=== PATIENT | female | born 1945 | race Caucasian/White ===

== ENCOUNTER → 2024-06-13 | Outpatient (CLI) | payer MEDICARE, BC, SELFPAY ==
--- NOTE | 2024-06-13 | XR_ITS ---
Examination: CT soft tissue neck, with intravenous contrast. 2-D coronal reconstructions. 2-D sagittal reconstructions. Date and time of exam :June 13, 2024 1350 hours INDICATIONS: Palpable lump in the left side of the neck noticed today. CTDI: vol (mGy):8.03 DLP: (mGycm):237 Technique: 1.25 mm axial sections of the neck of the obtained. Coronal and sagittal reconstructions have been obtained. Intravenous contrast administered 50 cc Isovue-370 Low dose protocols were performed. One or more of the following dose reduction techniques were used; automated exposure control, adjustment of the mA and/or KV according to patient size, use of iterative reconstruction technique. Findings: Mild maxillary sinus disease Symmetrical nasopharynx oropharynx Bilateral soft tissue tonsillar prominence Bilateral carotid triangle lymph nodes, the largest 10 mm on the left side Symmetrical submandibular glands The larynx appears normal Symmetrical thyroid lobes IMPRESSION: Bilateral soft tissue tonsillar prominence, recommend MRI soft tissue neck follow-up pre and postcontrast Also recommend ultrasound soft tissue of any palpable neck abnormality
== END | disposition home or self-care (01) ==
LOC: CDIM 13:19
PROVIDERS: PCP Specialist; Referring Provider Specialist; Visit Provider Specialist
DX: R22.1 Localized swelling, mass and lump, neck (principal)
CPT/HCPCS: 70491; A4649; Q9967

== ENCOUNTER 2024-07-31 11:26 | Inpatient (IN) | payer MEDICARE, BC, SELFPAY ==
[2024-07-31] VITALS (7 sets, daily range): BP systolic 130–138; BP diastolic 70–77; PULSE 80–98; RESP 15–97; TEMP 36.5–37.6; O2SAT 96–99; BMI 16.7; BMI 16.9
--- NOTE | 2024-07-31 11:39 | XR_ITS ---
Examination: CT brain head without contrast. 2-D sagittal coronal reconstructions Date and time of exam:July 31, 2024 1150 hours INDICATIONS: Patient fell today with injury to the back of the head, head pain CTDI: vol (mGy):45.5 DLP: (mGycm):904 Technique: Multiple CT axial sections of the brain have been obtained, 5 mm slice thickness. Contrast has not been administered. 2-D sagittal, coronal reconstructions have been obtained Low dose protocols were performed. One or more of the following dose reduction techniques were used; automated exposure control, adjustment of the mA and/or KV according to patient size, use of iterative reconstruction technique. Findings: No significant ventricular enlargement. Intra-axial or extra-axial hemorrhage density is not seen. No mass effect or midline shift Basal cisterns are not remarkable. Fourth ventricle is midline. Cranial vault intact. Impression: Negative for acute hemorrhage, mass effect or midline shift
--- NOTE | 2024-07-31 11:39 | XR_ITS ---
Examination: AP chest single view Technique one AP portable semiupright chest single view Date and time: July 31, 2024 12:22 PM comparison March 31, 2021 Indications: Patient fell 2 days ago with injury of the chest, chest pain FINDINGS: Normal heart size No pneumothorax No pneumonia or pulmonary contusion Prominent osteopenia, no acute clavicle or rib fractures IMPRESSION: No pneumothorax pulmonary contusion or hemothorax
--- NOTE | 2024-07-31 11:39 | XR_ITS ---
Examination: CT cervical spine without contrast 2-D sagittal reconstructions 2-D coronal reconstructions 3-D reconstructions. Exam date and time:July 31, 2024 1150 hours Patient fell today with into the neck, neck pain CTDI:vol (mGy) 6.90 DLP: (mGycm) 149 Technique: Multiple 2 mm axial sections of the cervical spine have been obtained. The coronal and sagittal reconstructions have been obtained. 3-D reconstructions have been obtained. Low dose protocols were performed. One or more of the following dose reduction techniques were used; automated exposure control, adjustment of the mA and/or KV according to patient size, use of iterative reconstruction technique. Findings: Axial sections demonstrate intact base of the skull. Grade 1 anterolisthesis C3 on C4 Significant disc narrowing C3-C4, C4-C5, C5-C6, C6-C7 C1 exhibit satisfactory relationship to the odontoid. No acute cervical vertebral body fracture seen. Alignment posterior spinous processes satisfactory. Impression: No acute cervical fracture.
--- NOTE | 2024-07-31 11:39 | XR_ITS ---
Examination:Right hip AP, lateral, AP pelvis 3 views Technique: Hip AP lateral, AP pelvis, 3 views Exam date and time:July 31, 2024 1220 hours INDICATIONS: Patient fell 2 days ago with injury to the right hip, right hip pain FINDINGS: Acute intertrochanteric fracture right hip 10 mm separation at the main fracture site Left hip bones of the pelvis intact Severe osteopenia IMPRESSION: Acute intertrochanteric fracture right hip.
--- NOTE | 2024-07-31 11:39 | XR_ITS ---
Examination: Right femur 2 views TECHNIQUE: AP lateral right femur 2 views Date and time: July 31, 2024 1209 hours INDICATIONS: Patient fell 2 days ago with injury to the femur, femur pain. FINDINGS: Acute intertrochanteric fracture right hip 10 mm separation at the main fracture site Shaft of the femur intact IMPRESSION: Acute intertrochanteric fracture right hip
--- NOTE | 2024-07-31 11:40 | EKG_ITS ---
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
--- NOTE | 2024-07-31 11:41 | PD.EDFALL ---
ED Fall Injury RME/HPI General Chief Complaint: Fall Stated Complaint: FALL Time Seen by Provider: 07/31/24 11:32 Arrival date/time: 07/31/24 11:26 RME / HPI RME / HPI Narrative: 79-year-old female patient with significant history of diabetes mellitus, came in for evaluation regarding ground-level fall patient sustained a ground-level fall last Monday night, and since then she is unable to ambulate that is why she decided to call EMS today. Patient also complained of right temporal contusion, neck pain, severity mild. Denies any LOC denies any nausea or vomiting denies any other injury. Patient is not taking any blood thinner. Related Data Home Medications ?Medication ?Instructions ?Recorded ?Confirmed blood-glucose sensor (Dexcom G6 11/14/23 11/14/23 Sensor device) blood-glucose transmitter (Dexcom 11/14/23 11/14/23 G6 Transmitter device) insulin glargine 100 unit/mL (3 4 unit subcut ACHS 11/14/23 11/14/23 mL) subcutaneous pen (Lantus Solostar U-100 Insulin) Allergies Allergy/AdvReac Type Severity Reaction Status Date / Time fentanyl Allergy Severe Weakness Verified 07/31/24 11:34 codeine Allergy Intermediate NAUSEA, Verified 07/31/24 11:34 VOMITING Sulfa (Sulfonamide Allergy Intermediate Rash Verified 07/31/24 11:34 Antibiotics) Review of Systems Review of Systems Narrative Review of Systems: Review of system reviewed and within normal limits except mentioned in HPI ED Exam Narrative Physical exam: VITAL SIGNS: Reviewed. GENERAL APPEARANCE: Alert and interactive, follows commands, no acute distress, HEAD AND FACE: Non-traumatic. ENT: PERRL, pink conjunctivitis, eyelid no trauma, Mucous membrane moist. NECK: Supple, nontender, no nuchal rigidity. CHEST: No tenderness, no crepitus, no paradoxical movement, no retractions. LUNGS: Clear, well ventilated, symmetric, no rales, no wheezing, no ronchi, no stridor, good breath sounds bilaterally. HEART: Regular rate, regular rhythm, no murmur, no gallops. ABDOMEN: Soft, positive bowel sounds, nondistended, no guarding, nontender, no rebound, no masses, RECTAL: Deferred. GENITAL: Deferred. NEUROLOGICAL: Gross motor function intact sensory function intact, Appropriate for age. MUSCULOSKELETAL: Right hip tenderness, externally rotated, slightly shortened, with limitation range of motion. Distal neurovascular status intact EXTREMITIES: Nontender, full range of motion. SKIN: Color pink, dry, no rash, no lacerations, no abrasions, no contusions. LYMPHATICS: Deferred. Course Quality Measures none Orders Category Date Time Status COVID-19 Screening Questionnaire NOW Care 07/31/24 14:21 Active Decision to Admit X1 Care 07/31/24 14:21 Active EKG (ED ONLY) *Do not use* NOW Care 07/31/24 11:40 Completed King [Urinary Catheter] QS Care 07/31/24 13:18 Active Consult to Orthopedic Stat Cons 07/31/24 13:[address] cervical spine wo con Stat Exams 07/31/24 11:[address] head/brain wo con Stat Exams 07/31/24 11:39 Completed EKG (ED Only) Stat Exams 07/31/24 11:40 Draft XR chest 1V Stat Exams 07/31/24 11:39 Completed XR femur RT 2V Stat Exams 07/31/24 11:39 Completed XR hip RT w pelvis 2-3V Stat Exams 07/31/24 11:39 Completed B-Type Natriuretic Peptide Stat Lab 07/31/24 12:46 Completed CBC Stat Lab 07/31/24 12:46 Completed Comprehensive Metabolic Panel Stat Lab 07/31/24 12:46 Completed Partial Thromboplastin Time Stat Lab 07/31/24 12:46 Completed Prothrombin Time with INR Stat Lab 07/31/24 12:46 Completed Troponin I Stat Lab 07/31/24 12:46 Completed Urinalysis, C/S if Indicated Stat Lab 07/31/24 13:48 Completed HYDROmorphone INJ [Dilaudid Inj] Med 07/31/24 13:18 Discontinued 1 mg IVP X1 ONE Vital Signs Vital signs: Vital Signs Temperature 99.7 F 07/31/24 11:50 Pulse Rate 98 07/31/24 11:50 Respiratory Rate 16 07/31/24 11:50 Blood Pressure 131/75 H 07/31/24 11:50 Pulse Oximetry (%) 99 07/31/24 11:50 Oxygen Delivery Method Room Air 07/31/24 11:50 Fall MDM Narrative MDM Narrative:: 79-year-old female patient with significant history of diabetes mellitus, came in for evaluation regarding ground-level fall patient sustained a ground-level fall last Monday night, and since then she is unable to ambulate that is why she decided to call EMS today. Patient also complained of right temporal contusion, neck pain, severity mild. Denies any LOC denies any nausea or vomiting denies any other injury. Patient is not taking any blood thinner. X-ray of the hip showed intertrochanteric fracture of the right femur. CT scan right hip unremarkable CT scan of the neck came back unremarkable. The rest of the labs came back normal impression except for hemoglobin of 9.9. EKG showed A-fib ventricular rate of 89 bpm, no ST segment elevation depression noted. I spoke with Dr. Tjeada orthopedic surgeon on-call who asked me to ask The hospitalist to admit the patient. I sent messages to Dr Piña for cardiac clearance. Case discussed with hospitalist who admitted the patient. Patient data External records reviewed:: None Clinical information provided by:: patient and family Social determinants that could affect healthcare access:: none Patient has the following chronic illnesses:: Diabetes mellitus How is presenting disease/condition affected by chronic disease/condition?: uneffected by Evaluation data The following diagnostics were reviewed and interpreted by me:: lab results, radiology exam(s) and EKG tracing(s) Lab and/or radiology exams considered but not ordered:: None Interpretation Summary: See response MDM Medications / Prescriptions Medications or Prescriptions considered but not ordered:: None Medication administrations:: Medication Administration History Acetaminophen (Acetaminophen 325 Mg Tablet) 650 mg PO Q6H PRN PRN Reason: Fever >100.3 or pain 1-3 Stop: 08/30/24 15:14 Dextrose (Dextrose 50%-Water Inj 50 Ml Syringe) 25 ml IV Q15MIN PRN PRN Reason: BG 50-70 responsive npo pt Stop: 08/30/24 16:01 Dextrose (Dextrose 50%-Water Inj 50 Ml Syringe) 50 ml IV Q15MIN PRN PRN Reason: BG <50 OR BG <70 & pt unresponsive Stop: 08/30/24 16:01 Glucagon (Glucagon Inj 1 Mg Vial) 1 mg IM Q15MIN PRN PRN Reason: BG <70, and no IV access Insulin Human Lispro (Insulin Lispro (Admelog) 1 Unit/0.01 Ml Unit) 0 unit SC AC [facility], [facility]; Protocol Stop: 08/30/24 16:59 Ketorolac Tromethamine (Ketorolac Inj 30 Mg/Ml Vial) 15 mg IVP Q6HR PRN PRN Reason: Pain 4-6 Stop: 08/05/24 15:30 Meperidine HCl (Meperidine Inj 50 Mg/Ml Vial) 25 mg IVP Q4HR PRN PRN Reason: pain 7-10 Stop: 08/05/24 16:48 Ondansetron HCl (Ondansetron Inj 2 Mg/Ml Inj 2 Ml) 4 mg IVP Q6H PRN; Protocol PRN Reason: NAUSEA OR VOMITING Stop: 08/30/24 15:14 Pancreatin (Amylase/Lipase/Protease Capsule (Pancreaze)) 1 cap PO TIDWM MACHO Stop: 08/30/24 17:29 Sennosides (Senna Tablet) 1 tab PO QDAY PRN; Protocol PRN Reason: constipation Stop: 08/30/24 15:14 Discontinued Medications Acetaminophen (Acetaminophen 325 Mg Tablet) 650 mg PO Q6H PRN PRN Reason: Fever >100.3 or pain Stop: 08/30/24 15:14 Hydromorphone HCl (Hydromorphone Inj 2 Mg/Ml Vial) 1 mg IVP X1 ONE Stop: 07/31/24 13:19 Last Admin: 07/31/24 17:12 Dose: Not Given Documented By: RAAFEL Non-Admin Reason: Patient Refused Hydromorphone HCl (Hydromorphone Inj 2 Mg/Ml Vial) 1 mg IVP Q4HR PRN PRN Reason: Pain 7-10 Stop: 08/05/24 15:30 Meperidine HCl (Meperidine Inj 25 Mg/Ml Vial) 25 mg IVP Q6HR PRN PRN Reason: pain 7-10 Stop: 08/05/24 16:48 Potassium Chloride (Potassium Chloride 20 Meq Tabcr) 40 meq PO X1 ONE Stop: 07/31/24 15:52 Last Admin: 07/31/24 16:55 Dose: 40 meq Documented By: RAFAEL Potassium Chloride (Potassium Chloride 10% 20 Meq/15 Ml Udc) 20 meq PO X1 ONE Stop: 07/31/24 17:06 Last Admin: 07/31/24 17:25 Dose: 20 meq Documented By: RAFAEL Comments: Scanner not working Tylenol, hydrocodone, potassium Consultations Consultation(s) initiated? (list below): Yes Consultation #1 (Physician, Specialty, Details): Dr. Tejada Diagnosis Fall Differential Diagnosis: concussion with loss of consciousness (Hip fracture, status post fall, intertrochanteric fracture of the hip) Most likely diagnosis given after review of the tests above:: Intertrochanteric fracture of the hip Admission Indicated Admission indicated?: not indicated Admission Request Was there a request for admission?: Yes Admission Attestation Admission request attestation: Discussed case with [Dr. Stover] from Hospitalist service regarding admission. Discussed patients ED course, exam findings, labs, and radiology results. The Hospitalist [agrees to accept the patient for admission. Disposition Plan Disposition Plan: Admit Discharge Plan Plan Patient Disposition: Admit Acute Care w/in Hospital Discharge Disposition comment: Stable Problem List Clinical Impression: Closed intertrochanteric fracture of right femur, Diabetes mellitus
[2024-07-31 13:02] LABS: Basophils % (Auto) 0 % (0-2.5); Eosinophils % (Auto) 0 % (0-10); Hematocrit 29.6 % (36.0-46.0); Hemoglobin 9.9 g/dL (12.0-16.0); Immature Granulocytes % (Auto) 0 % (0-0); Immature Granulocytes Auto 0.01 Thou/mm3 (0.00-0.00); Lymphocytes # (Auto) 2.2 Thou/mm3 (1.0-4.8); Lymphocytes % (Auto) 28 % (10-50); Mean Corpuscular HGB Conc 33.4 g/dl (31.0-37.0); Mean Corpuscular Hemoglobin 33.6 pg (25.0-35.0); Mean Corpuscular Volume 100 fL (80-100); Monocytes # (Auto) 1.4 Thou/mm3 (0.0-0.8); Monocytes % (Auto) 18 % (0-12); Neutrophils # (Auto) 4.3 Thou/mm3 (1.8-7.7); Neutrophils % (Auto) 54 % (37-80); Nucleated Red Blood Cell % 0 /100 WBC (0); Platelet Count 167 Thou/mm3 (140-440); RDW Standard Deviation 49.6 fL (36.4-46.3); Red Blood Count 2.95 Miln/mm3 (4.00-5.20)
[2024-07-31 13:19] LABS: B-Type Natriuretic Peptide 123 pg/mL (0-100)
[2024-07-31 13:21] LABS: INR 1.1 (0.9-1.3); Partial Thromboplastin Time 29.9 Seconds (22.0-36.0)
[2024-07-31 13:23] LABS: Alanine Aminotransferase 23 U/L (10-49); Albumin, Serum 2.8 gm/dL (3.4-4.8); Albumin/Globulin Ratio 1.3 (1.2-2.2); Alkaline Phosphatase 90 U/L (46-116); Anion Gap 8 (7-16); BUN/Creatinine Ratio 16 Ratio (12-20); Bilirubin,Total 0.9 mg/dL (0.3-1.2); Blood Urea Nitrogen 8 mg/dL (9-23); Carbon Dioxide 29.3 mMol/L (20.0-31.0); Chloride 108 mMol/L (98-107); Creatinine (Component) 0.5 mg/dL (0.6-1.3); Estimated Creatinine Clearance 70.2 mL/min (>60); Globulin 2.2 gm/dL (2.3-3.5); Glucose 107 mg/dL (74-106); Osmolality,Calculated 287 (275-295); Potassium 3.5 mMol/L (3.4-5.1); Sodium 145 mMol/L (136-145); Troponin I < 0.020 ng/mL (0.0-0.045); eGFR > 60 See Note
[2024-07-31 13:55] LABS: Collection Type, Urine Clean Catch
[2024-07-31 13:58] LABS: Bilirubin,Urine Negative (Negative); Blood,Urine Negative (Negative); Clarity,Urine Clear (Clear/Hazy); Color,Urine Colorless (Lt Yel-Yel); Culture Indicated,Urine Not Indicated; Glucose, Urine Negative (Negative); Ketones,Urine Negative (Negative); Leukocyte Esterase,Urine Negative (Negative); Nitrite,Urine Negative (Negative); PH,Urine 6.5 (5.0-7.0); Protein,Urine Negative (Neg - Trace); RBC,Urine < 1 /hpf (0-3); Specific Gravity,Urine 1.007 (1.001-1.035); Squamous Epithelial Cell,Urine < 1 /hpf (0-5); Urobilinogen,Urine Negative mg/dL (0.0-1.0); WBC,Urine < 1 /hpf (0-5)
--- NOTE | 2024-07-31 15:55 | ESHP_ITS ---
<Statement entered by Cameron Valadez MD - 07/31/24 22:20> Patient 79-year-old female with significant medical history for chronic pancreatitis, DM2 and skin cancer (undergoing radiation treatment) Biba from home after ground-level fall. Head CT was negative, right hip and femur x-ray indicated right intertrochanteric fracture of the hip. Orthopedic surgeon Dr. Mccann consulted, cardiology and echocardiogram ordered for clearance, plan is to have surgery on 08/02/2024. I discussed with and supervised the buyer internship physician involved in the care of this patient. Patient assessment and plan was discussed with entire medicine team, including my attending. I agree with the assessment and plan as documented by buyer internship doctor. Patient care was discussed with my attending physician Dr. Mckayla Valadez, PGY-2 Documentation for date of: 07/31/24 HPI History of Present Illness Chief complaint: right hip pain History of present illness: The patient is a 79-year-old female with a previous medical history of chronic pancreatitis, status post pancreatic surgery, insulin-dependent diabetes, skin cancer undergoing treatment who was brought to the ED by ambulance on 07/31/2024 after ground-level fall. Patient reports that she went to use the restroom, was moving to sit down on the toilet and, lost her balance and landed on the right side of the body and hit her head. She is not sure if she lost consciousness. Before coming to the hospital she received ketamine and Tylenol. In the ED she was hemodynamically stable, saturating well on room air. Labs showed WBC count of 8.0, hemoglobin 9.9, platelet count 167, potassium 3.5, creatinine 0.5, EGFR more than 60, glucose 107, corrected calcium 9.0, BNP 123. Head CT was negative for acute intracranial pathology. Imaging showed acute right intertrochanteric fracture of the hip. EKG showed sinus arrhythmia. Orthopedic surgeon Dr. Mccann was consulted for surgical management. Patient reports she feels nauseos from opid medication and reports that she tolerates well only Demerol. She was suggested other alternatives for pain control, but she requested Demerol. Patient also reported that she underwent multiple pancreatic surgeries and has a history of chronic pancreatitis. She used to take Creaon, but is unable to afford the copay. She is also using Glargine and insulin aspart for blood sugar control. She denies being diagnosed with Afib, reports that she was following up with general doc Dr. Helm and that she is not on blood thinners. Patient is going to be admitted for acute right hip fracture treatment and management. Social history: Denies drinking alcohol, smoking cigarettes. Independent in everyday activities, lives with her . Family history: Recurrent pancreatitis in her father Surgical history: Whipple surgery, splenectomy, cholecystectomy. Review of Systems Review of Systems Systems Reviewed: All systems reviewed, normal except as documented Exam Vital Signs Temp Pulse Resp BP Pulse Ox O2 Del Method 98.0 F 80 15 138/70 H 98 Room Air 07/31/24 14:27 07/31/24 14:27 07/31/24 14:27 07/31/24 14:27 07/31/24 14:07/31/24 14:27 Narrative Exam Gen: Thin elderly female. HEENT: NCAT, PERRLA, EOMI, MMM, anicteric conjunctivae. CVS: normal S1 and S2. RRR. No M/R/G. Resp: CTA B/L. No rhonchi, rales, crackles or wheezing. Abd: soft, non-tender, non-distended. BS+ in all 4 quadrants. MSK: Right lower extremity ROM restricted, extremity is externally rotated. 1+ tibial edema. Neuro: CN II-XII grossly intact. Able to move all extremities except right lower extremity due to pain. Alert and oriented x3. Psych: appropriate mood and affect. Results: Labs 08/01/24 05:23 08/01/24 05:23 Labs: Short CBC 07/31/24 Range/Units 12:46 WBC 8.0 (3.6-11.0) Thou/mm3 Hgb 9.9 L (12.0-16.0) g/dL Hct 29.6 L (36.0-46.0) % Plt Count 167 (140-440) Thou/mm3 BMP 07/31/24 12:46 Sodium 145 Potassium 3.5 Chloride 108 H Carbon Dioxide 29.3 BUN 8 L Creatinine 0.5 L Glucose 107 H Calcium 8.0 L Cardiac Enzymes 07/31/24 Range/Units 12:46 Troponin I < 0.020 (0.0-0.045) ng/mL Liver Function 06/11/25 Range/Units 12:46 Total Bilirubin 0.9 (0.3-1.2) mg/dL ALT 23 (10-49) U/L Alkaline Phosphatase 90 (46-116) U/L Albumin 2.8 L (3.4-4.8) gm/dL Urine 07/31/24 Range/Units 13:48 Urine Color Colorless A (Lt Yel-Yel) Urine Clarity Clear (Clear/Hazy) Urine pH 6.5 (5.0-7.0) Ur Specific [place] 1.007 (1.001-1.035) Urine Protein Negative (Neg - Trace) Urine Glucose (UA) Negative (Negative) Quality Measures Quality Measures VTE prophylaxis Advance care planning discussed with:: patient Medications Home Medications and Allergies Home Medications ?Medication ?Instructions ?Recorded ?Confirmed ?Type blood-glucose sensor (Dexcom G6 11/14/23 07/31/24 His tory Sensor device) blood-glucose transmitter (Dexcom 11/14/23 07/31/24 H istory G6 Transmitter device) insulin glargine 100 unit/mL (3 5 unit subcut BIDAC 07/31/24 History mL) subcutaneous pen (Lantus Solostar U-100 Insulin) cholecalciferol (vitamin D3) 1 tab PO QDAY 07/31/24 History docusate sodium 1 cap PO QDAY 07/31/2407/31 History fiber 1 dose PO QDAY 07/31/2407/21 History insulin aspart U-100 100 unit/mL 1 sliding scale dose subcut TIDWM 07/31/24 07/31/24 History (3 mL) subcutaneous pen (Novolog PRN hyperglycemia FlexPen U-100 Insulin aspart) [id number] 1 cap PO TIDWMEAL 07/31/24 0 07/31/24 History Allergies Allergy/AdvReac Type Severity Reaction Status Date / Time fentanyl Allergy Severe Weakness Verified 07/31/24 11:34 codeine Allergy Intermediate NAUSEA, Verified 07/31/24 11:34 VOMITING Sulfa (Sulfonamide Allergy Intermediate Rash Verified 07/31/24 11:34 Antibiotics) Visit Medications Acetaminophen (Acetaminophen 325 Mg Tablet) 650 mg PO Q6H PRN PRN Reason: Fever >100.3 or pain 1-3 Stop: 08/30/24 15:14 Hydromorphone HCl (Hydromorphone Inj 2 Mg/Ml Vial) 1 mg IVP Q4HR PRN PRN Reason: Pain 7-10 Stop: 08/05/24 15:30 Ketorolac Tromethamine (Ketorolac Inj 30 Mg/Ml Vial) 15 mg IVP Q6HR PRN PRN Reason: Pain 4-6 Stop: 08/05/24 15:30 Ondansetron HCl (Ondansetron Inj 2 Mg/Ml Inj 2 Ml) 4 mg IVP Q6H PRN; Protocol PRN Reason: NAUSEA OR VOMITING Stop: 08/30/24 15:14 Sennosides (Senna Tablet) 1 tab PO QDAY PRN; Protocol PRN Reason: constipation Stop: 08/30/24 15:14 Discontinued Medications Acetaminophen (Acetaminophen 325 Mg Tablet) 650 mg PO Q6H PRN PRN Reason: Fever >100.3 or pain Stop: 08/30/24 15:14 Hydromorphone HCl (Hydromorphone Inj 2 Mg/Ml Vial) 1 mg IVP X1 ONE Stop: 07/31/24 13:19 Potassium Chloride (Potassium Chloride 20 Meq Tabcr) 40 meq PO X1 ONE Stop: 07/31/24 15:52 Assessment & Plan Plan The patient is a 79-year-old female with a previous medical history of chronic pancreatitis, status post pancreatic surgery, insulin-dependent diabetes, skin cancer undergoing treatment who was brought to the ED by ambulance on 07/31/2024 after ground-level fall. #Acute right hip intertrochanteric fracture #Ground level fall Patient had a fall when she went to the restroom at night. Imaging showed right sided intertrochanteric fracture. Plan: - orthopedic surgeon Dr. Mccann consulted - pain control as needed - physical therapy after surgery #Anemia Patient had EGD and colonoscopy in 2023 that showed internal hemorrhoids and non-bleeding angiodysplasias. Plan: - monitor CBC - iron panel - transfuse if Hgb <7 #Chronic pancreatitis #S/p pancreatotomy #Insulin dependent diabetes mellitus #Body mass deficit Plan: - pancreaze TID with meals - diatitian consult - insulin sliding scale - hypoglycemia protocol Health maintenance: FEN: carbohydrate consistent DVT prophylaxis: SCDs GI prophylaxis: none Dispo: med surg CODE STATUS: Full code Plan of care discussed with attending Dr. Block. Gabi Reddy MD, PGY 1. Attending Provider Attestation/Addendum I, Bailey Block DO, attest that I was physically present for the cheng portions of the service and evaluated the patient with the resident and I reviewed and discussed the case with the resident and agree with the resident's findings and plans of care as documented above Patient is a 79-year-old female with past medical history of chronic pancreatitis status post Whipple, IDDM, skin cancer undergoing radiation who presented to the ED after sustaining a ground-level fall. Patient was found to have a right acute anterior trochanteric hip fracture. Patient denied any loss of consciousness but did hit her head on the right side. No laceration noted. She states that she had tripped while going to the bathroom. Head CT was done in the ED showing no acute intracranial findings. Patient denies any chest pain or shortness of breath otherwise. She denies any fevers or chills. Patient is noted to have an externally rotated right lower extremity. Ortho was consulted from ED and accepted patient. Will consult cardiology for cardiac clearance. Will admit patient to med/surge for further workup medical management of acute intertrochanteric fracture. Continue with pain control as needed at this time. Patient states that she cannot tolerate any stronger opioids and has chosen to go along with Demerol. Will also order ketorolac.
[2024-07-31] MEDS: POTASSIUM CHLORIDE 20 mEq TABCR 40 MEQ PO (16:55)
[2024-07-31] MEDS: POTASSIUM CHLORIDE 10% 20 MEQ/15 ML UDC PO (17:25)
--- NOTE | 2024-07-31 17:33 | PD.IMCONS ---
HPI Data of Consult Requesting Physician: Bailey Block DO Primary Care Provider: Falguni Orantes MD Consult Narrative History of present illness: This is a 79-year-old female with a previous medical history of chronic pancreatitis, status post pancreatic surgery, insulin-dependent diabetes, skin cancer pt seen in the ER after a fall ER evaluation revealed fracture of the hip - R cardiology consulted for clearance no cardiac symptoms reported - No chest pain , SOB or palpitations' EKG shows rate controlled afib troponin negative cc:: cc: Bailey Block DO Meds Home Medications and Allergies Home Medications ?Medication ?Instructions ?Recorded ?Confirmed ?Type blood-glucose sensor (Dexcom G6 11/14/23 11/14/23 History Sensor device) blood-glucose transmitter (Dexcom 11/14/23 11/14/23 History G6 Transmitter device) insulin glargine 100 unit/mL (3 4 unit subcut ACHS 11/14/23 11/14/23 History mL) subcutaneous pen (Lantus Solostar U-100 Insulin) Allergies Allergy/AdvReac Type Severity Reaction Status Date / Time fentanyl Allergy Severe Weakness Verified 07/31/24 11:34 codeine Allergy Intermediate NAUSEA, Verified 07/31/24 11:34 VOMITING Sulfa (Sulfonamide Allergy Intermediate Rash Verified 07/31/24 11:34 Antibiotics) Exam Vital Signs Temp Pulse Resp BP Pulse Ox O2 Del Method 97.7 F 85 15 130/72 96 Room Air 07/31/24 16:26 07/31/24 16:42 07/31/24 16:42 07/31/24 16:26 07/31/24 16:26 07/31/24 16:26 Routine HEENT Exam Head: Present normocephalic and atraumatic Eye: Present EOMI and PERRL ENT: Present mucous membranes moist Routine Neck Exam Neck: Present supple and trachea midline Routine Respiratory Exam Respiratory: Present chest non-tender, lungs clear, normal breath sounds and no resp distress Routine Cardiovascular Exam Cardiovascular: Present RRR Routine Abdominal Exam Abdominal: Present soft and normoactive bowel sounds Routine Extremities Exam Extremities: Present full ROM Routine Skin Exam Skin: Present intact, dry and warm Routine Neurological Exam Neurological: Present alert, oriented X3 and CN II-XII intact Routine Psychiatric Exam Psychiatric: Present normal affect and normal thought process Results Labs 07/31/24 12:46 07/31/24 12:46 Labs: Short CBC 07/31/24 Range/Units 12:46 WBC 8.0 (3.6-11.0) Thou/mm3 Hgb 9.9 L (12.0-16.0) g/dL Hct 29.6 L (36.0-46.0) % Plt Count 167 (140-440) Thou/mm3 BMP 07/31/24 12:46 Sodium 145 Potassium 3.5 Chloride 108 H Carbon Dioxide 29.3 BUN 8 L Creatinine 0.5 L Glucose 107 H Calcium 8.0 L Cardiac Enzymes 07/31/24 Range/Units 12:46 Troponin I < 0.020 (0.0-0.045) ng/mL Liver Function 07/31/24 Range/Units 12:46 Total Bilirubin 0.9 (0.3-1.2) mg/dL ALT 23 (10-49) U/L Alkaline Phosphatase 90 (46-116) U/L Albumin 2.8 L (3.4-4.8) gm/dL Urine 07/31/24 Range/Units 13:48 Urine Color Colorless A (Lt Yel-Yel) Urine Clarity Clear (Clear/Hazy) Urine pH 6.5 (5.0-7.0) Ur Specific [place] 1.007 (1.001-1.035) Urine Protein Negative (Neg - Trace) Urine Glucose (UA) Negative (Negative) Assessment and Plan Assessment and plan (1) Diabetes mellitus: Status: Acute (2) Closed intertrochanteric fracture of right femur: Status: Acute (3) Atrial fibrillation: Status: Acute (4) Pre-operative cardiovascular exam, new EKG abnormalities c/w ischemia: Status: Acute Additional Assessment & Plan Additional Plan: pt offers no cardiac symptoms EKG rate controlled afib pt troponin x1 negative echo pending
[2024-07-31] MEDS: INSULIN LISPRO (AdmeLOG) 1 UNIT/0.01 ML UNIT SC (17:44)
--- NOTE | 2024-07-31 18:30 | PC.NURSE ---
Gave report to Vanesa TIWARI
[2024-07-31] MEDS: MEPERIDINE INJ 50 MG/ML VIAL 25 MG IVP ×2 (19:36→23:28)
--- NOTE | 2024-07-31 19:46 | PD.IMCONS ---
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 Amaya Post pancreatic surgery patient has 12 fluctuating blood sugar Recent surgery was recommended at [facility] with a pancreatic transplant but patient did not want to go there as they economically could not afford to stay in [place] for 6 weeks So patient did not receive any pancreatic transplant post pancreatic surgery And her fluctuating blood sugars have been a challenge to manage She gets frequent episodes of hypoglycemia Because of her extensive GI issues I was consulted by the ER cc:: cc: Bailey Block DO Review of Systems Review of Systems Systems Reviewed: All systems reviewed, normal except as documented Past Medical History Surgical History OTHER SURGICAL HX: As in the history of present illness Meds Home Medications and Allergies Home Medications ?Medication ?Instructions ?Recorded ?Confirmed ?Type blood-glucose sensor (Dexcom G6 11/14/23 07/31/24 History Sensor device) blood-glucose transmitter (Dexcom 11/14/23 07/31/24 History G6 Transmitter device) insulin glargine 100 unit/mL (3 5 unit subcut BIDAC 11/14/23 07/31/24 History mL) subcutaneous pen (Lantus Solostar U-100 Insulin) cholecalciferol (vitamin D3) 1 tab PO QDAY 07/31/24 07/31/24 History docusate sodium 1 cap PO QDAY 07/31/24 07/31/24 History fiber 1 dose PO QDAY 07/31/24 07/31/24 History insulin aspart U-100 100 unit/mL 1 sliding scale dose subcut TIDWM 07/31/24 07/31/24 History (3 mL) subcutaneous pen (Novolog PRN hyperglycemia FlexPen U-100 Insulin aspart) [id number] 1 cap PO TIDWMEAL 07/31/24 07/31/24 History Allergies Allergy/AdvReac Type Severity Reaction Status Date / Time fentanyl Allergy Severe Weakness Verified 07/31/24 11:34 codeine Allergy Intermediate NAUSEA, Verified 07/31/24 11:34 VOMITING Sulfa (Sulfonamide Allergy Intermediate Rash Verified 07/31/24 11:34 Antibiotics) Exam Vital Signs Temp Pulse Resp BP Pulse Ox O2 Del Method 98.0 F 80 15 131/77 H 99 Room Air 07/31/24 18:10 07/31/24 18:10 07/31/24 18:10 07/31/24 18:10 07/31/24 18:10 07/31/24 18:10 Constitutional Comments: Alert oriented Routine Respiratory Exam Comments: Normal to auscultation Routine Abdominal Exam Comments: Soft nontender benign Results Labs 08/01/24 05:23 08/01/24 05:23 Labs: Short CBC 07/31/24 Range/Units 12:46 WBC 8.0 (3.6-11.0) Thou/mm3 Hgb 9.9 L (12.0-16.0) g/dL Hct 29.6 L (36.0-46.0) % Plt Count 167 (140-440) Thou/mm3 BMP 07/31/24 12:46 Sodium 145 Potassium 3.5 Chloride 108 H Carbon Dioxide 29.3 BUN 8 L Creatinine 0.5 L Glucose 107 H Calcium 8.0 L Cardiac Enzymes 07/31/24 Range/Units 12:46 Troponin I < 0.020 (0.0-0.045) ng/mL Liver Function 07/31/24 Range/Units 12:46 Total Bilirubin 0.9 (0.3-1.2) mg/dL ALT 23 (10-49) U/L Alkaline Phosphatase 90 (46-116) U/L Albumin 2.8 L (3.4-4.8) gm/dL Urine 07/31/24 Range/Units 13:48 Urine Color Colorless A (Lt Yel-Yel) Urine Clarity Clear (Clear/Hazy) Urine pH 6.5 (5.0-7.0) Ur Specific [place] 1.007 (1.001-1.035) Urine Protein Negative (Neg - Trace) Urine Glucose (UA) Negative (Negative) Assessment and Plan Additional Assessment & Plan Additional Plan: # Pancreatic insufficiency status post total pancreatectomy # Routine blood sugar recurrent bouts of hypoglycemia and hyperglycemia Patient managed with very little long-acting insulin and sliding scale Will start the patient on Creon 2 tablets with each meal # Right hip intertrochanteric fracture # Cardiac status patient sees Dr. 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
--- NOTE | 2024-07-31 19:57 | PC.NURSE ---
seen and examined by Dr. Orantes
[2024-07-31] MEDS: DEXTROSE 50%-WATER INJ 50 ML SYRINGE IV (20:24)
--- NOTE | 2024-07-31 20:34 | PC.NURSE ---
lab draw for glucose level done- with 15ml D50 iv given. 35ml still giving after lab draw done.
[2024-07-31 21:00] LABS: Glucose 149 mg/dL (74-106)
[2024-07-31] MEDS: AMYLASE/LIPASE/PROTEASE CAPSULE (Pancreaze) 1 CAP PO (21:46)
[2024-07-31] MEDS: SENNA TABLET 1 TAB PO (21:49)
[2024-08-01] VITALS (8 sets, daily range): BP systolic 107–139; BP diastolic 62–75; PULSE 74–98; RESP 16–97; TEMP 36.4–37.2; O2SAT 96–99; BMI 16.9
[2024-08-01] MEDS: MEPERIDINE INJ 50 MG/ML VIAL 25 MG IVP ×3 (05:27→20:15)
[2024-08-01 06:14] LABS: Basophils % (Auto) 0 % (0-2.5); Eosinophils # (Auto) 0.2 Thou/mm3 (0.0-0.5); Eosinophils % (Auto) 2 % (0-10); Hematocrit 29.3 % (36.0-46.0); Hemoglobin 10.1 g/dL (12.0-16.0); Immature Granulocytes % (Auto) 0 % (0-0); Immature Granulocytes Auto 0.01 Thou/mm3 (0.00-0.00); Lymphocytes # (Auto) 2.7 Thou/mm3 (1.0-4.8); Lymphocytes % (Auto) 32 % (10-50); Mean Corpuscular HGB Conc 34.5 g/dl (31.0-37.0); Mean Corpuscular Hemoglobin 33.1 pg (25.0-35.0); Mean Corpuscular Volume 96 fL (80-100); Monocytes # (Auto) 1.4 Thou/mm3 (0.0-0.8); Monocytes % (Auto) 17 % (0-12); Neutrophils # (Auto) 4.2 Thou/mm3 (1.8-7.7); Neutrophils % (Auto) 49 % (37-80); Nucleated Red Blood Cell % 0 /100 WBC (0); Platelet Count 162 Thou/mm3 (140-440); RDW Standard Deviation 48.9 fL (36.4-46.3); Red Blood Count 3.05 Miln/mm3 (4.00-5.20); White Blood Count 8.5 Thou/mm3 (3.6-11.0)
[2024-08-01 06:33] LABS: Alanine Aminotransferase 21 U/L (10-49); Albumin, Serum 2.8 gm/dL (3.4-4.8); Albumin/Globulin Ratio 1.3 (1.2-2.2); Alkaline Phosphatase 90 U/L (46-116); Anion Gap 7 (7-16); BUN/Creatinine Ratio 13 Ratio (12-20); Bilirubin,Total 0.8 mg/dL (0.3-1.2); Blood Urea Nitrogen < 5 mg/dL (9-23); Calcium 8.2 mg/dL (8.3-10.6); Calcium (Corrected) 9.2 mg/dL (8.5-10.1); Carbon Dioxide 30.4 mMol/L (20.0-31.0); Chloride 106 mMol/L (98-107); Creatinine (Component) 0.4 mg/dL (0.6-1.3); Estimated Creatinine Clearance 88.6 mL/min (>60); Globulin 2.2 gm/dL (2.3-3.5); Glucose 124 mg/dL (74-106); Magnesium 1.5 mg/dL (1.6-2.6); Osmolality,Calculated 283 (275-295); Phosphorous 2.4 mg/dL (2.4-5.1); Potassium 4.1 mMol/L (3.4-5.1); Sodium 143 mMol/L (136-145); eGFR > 60 See Note
[2024-08-01 06:40] LABS: Glucose Estimated Average 128 mg/dL (80-131); Hemoglobin A1C 6.1 % Hgb (4.8-6.0)
[2024-08-01] MEDS: AMYLASE/LIPASE/PROTEASE CAPSULE (Pancreaze) 1 CAP PO ×3 (08:05→17:17)
[2024-08-01] MEDS: Magnesium Sulfate 4 GM Ivpb 4 GM/50 ML BAG IV (08:05)
[2024-08-01] MEDS: POLYETHYLENE GLYCOL 17 GM PACKET PO (08:05)
--- NOTE | 2024-08-01 08:52 | ESPR_ITS ---
<Statement entered by Cameron Valadez MD - 08/02/24 16:31> I discussed with and supervised the music internship physician involved in the care of this patient. Patient assessment and plan was discussed with entire medicine team, including my attending. I agree with the assessment and plan as documented by music internship doctor. Patient care was discussed with my attending physician Dr. Mckayla Valadez, PGY-2 Documentation for date of: 08/01/24 Subjective Subjective Interval history: Patient was seen and examined by the bedside. No acute overnight events. Patient reports pain in the right hip is controlled. Reports constipation, resumed home colace, started miralax. Dr. Mccann is following, surgery is planned for Monday. Pending echo for cardiac clearance. Exam Vital Signs Temp Pulse Resp BP Pulse Ox O2 Del Method 98 F 80 18 123/62 97 Room Air 08/01/24 04:00 08/01/24 07:36 08/01/24 07:36 08/01/24 04:00 08/01/24 04:00 08/01/24 04:00 Narrative Exam Gen: Thin elderly female. HEENT: NCAT, PERRLA, EOMI, MMM, anicteric conjunctivae. CVS: normal S1 and S2. RRR. No M/R/G. Resp: CTA B/L. No rhonchi, rales, crackles or wheezing. Abd: soft, non-tender, non-distended. BS+ in all 4 quadrants. MSK: Right lower extremity ROM restricted, extremity is externally rotated. 1+ tibial edema. Neuro: CN II-XII grossly intact. Able to move all extremities except right lower extremity due to pain. Alert and oriented x3. Psych: appropriate mood and affect. Objective Labs 08/02/24 05:18 08/02/24 05:18 Labs: Laboratory Results - last 24 hr 07/31/24 07/31/24 07/31/24 12:46 13:48 20:35 WBC 8.0 RBC 2.95 L Hgb 9.9 L Hct 29.6 L MCV 100 MCH 33.6 MCHC 33.4 RDW Std Deviation 49.6 H Plt Count 167 Neut % (Auto) 54 Lymph % (Auto) 28 [place] % (Auto) 18 H Eos % (Auto) 0 Baso % (Auto) 0 Neut # (Auto) 4.3 Lymph # (Auto) 2.2 [place] # (Auto) 1.4 H Eos # (Auto) 0.0 Baso # (Auto) 0.0 Immature Gran # (Auto) 0.01 H Absolute Nucleated RBC 0.00 Immature Gran % 0 Nucleated RBC % 0 PT 12.0 INR 1.1 APTT 29.9 Sodium 145 Potassium 3.5 Chloride 108 H Carbon Dioxide 29.3 Anion Gap 8 BUN 8 L Creatinine 0.5 L Estim Creat Clear Calc 70.2 eGFR > 60 BUN/Creatinine Ratio 16 Glucose [address] Glu mg/dL Hemoglobin A1c Calculated Osmolality 287 Calcium 8.0 L Corrected Calcium 9.0 Phosphorus Magnesium Total Bilirubin 0.9 ALT 23 Alkaline Phosphatase 90 Troponin I < 0.020 B-Natriuretic Peptide 123 H Total Protein 5.0 L Albumin 2.8 L Globulin 2.2 L Albumin/Globulin Ratio 1.3 Ur Collection Type Clean Catch Urine Color Colorless A Urine Clarity Clear Urine pH 6.5 Ur Specific [place] 1.007 Urine Protein Negative Urine Glucose (UA) Negative Urine Ketones Negative Urine Blood Negative Urine Nitrite Negative Urine Bilirubin Negative Urine Urobilinogen (Auto) Negative Ur Leukocyte Esterase Negative Urine RBC < 1 Urine WBC < 1 Ur Squamous Epith Cells < 1 Urine Bacteria None Ur Culture Indicated? Not Indicated 08/01/24 05:23 WBC 8.5 RBC 3.05 L Hgb 10.1 L Hct 29.3 L MCV 96 MCH 33.1 MCHC 34.5 RDW Std Deviation 48.9 H Plt Count 162 Neut % (Auto) 49 Lymph % (Auto) 32 [place] % (Auto) 17 H Eos % (Auto) 2 Baso % (Auto) 0 Neut # (Auto) 4.2 Lymph # (Auto) 2.7 [place] # (Auto) 1.4 H Eos # (Auto) 0.2 Baso # (Auto) 0.0 Immature Gran # (Auto) 0.01 H Absolute Nucleated RBC 0.00 Immature Gran % 0 Nucleated RBC % 0 PT INR APTT Sodium 143 Potassium 4.1 D Chloride 106 Carbon Dioxide 30.4 Anion Gap 7 BUN < 5 L Creatinine 0.4 L Estim Creat Clear Calc 88.6 eGFR > 60 BUN/Creatinine Ratio [address]ucose [address] Glu mg/dL 128 Hemoglobin A1c 6.1 H Calculated Osmolality 283 Calcium 8.2 L Corrected Calcium 9.2 Phosphorus 2.4 Magnesium 1.5 L Total Bilirubin 0.8 ALT 21 Alkaline Phosphatase 90 Troponin I B-Natriuretic Peptide Total Protein 5.0 L Albumin 2.8 L Globulin 2.2 L Albumin/Globulin Ratio 1.3 Ur Collection Type Urine Color Urine Clarity Urine pH Ur Specific [place] Urine Protein Urine Glucose (UA) Urine Ketones Urine Blood Urine Nitrite Urine Bilirubin Urine Urobilinogen (Auto) Ur Leukocyte Esterase Urine RBC Urine WBC Ur Squamous Epith Cells Urine Bacteria Ur Culture Indicated? Quality Measures Quality Measures VTE prophylaxis Advance care planning discussed with:: patient Assessment & Plan Assessment Current Active Medications: Generic Name Dose Route Start Last Admin Trade Name Freq PRN Reason Stop Dose Admin Acetaminophen 650 mg 07/31/24 15:34 Acetaminophen 325 Mg Tablet PO 08/30/24 15:14 Q6H PRN Fever >100.3 or pain 1-3 Dextrose 25 ml 07/31/24 16:02 Dextrose 50%-Water Inj 50 Ml Syringe IV 08/30/24 16:01 Q15MIN PRN BG 50-70 responsive npo pt Dextrose 50 ml 07/31/24 16:02 07/31/24 20:24 Dextrose 50%-Water Inj 50 Ml Syringe IV 08/30/24 16:01 50 ml Q15MIN PRN Administration BG <50 OR BG <70 & pt unresponsive Docusate Sodium 200 mg 08/02/24 09:00 Docusate Sod 100 Mg Capsule PO 09/01/24 08:59 QDAY [facility] Protocol Glucagon 1 mg 07/31/24 16:02 Glucagon Inj 1 Mg Vial IM Q15MIN PRN BG <70, and no IV access Magnesium Sulfate 4 gm in 50 mls @ 12.5 mls/hr 08/01/24 07:36 08/01/24 08:05 Magnesium Sulfate Ivpb IV 08/01/24 11:35 12.5 mls/hr X1 ONE Administration Insulin Human Lispro 0 unit 07/31/24 17:00 08/01/24 07:56 Insulin Lispro (Admelog) 1 Unit/0.01 Ml Unit SC 08/30/24 16:59 Not Given AC [facility] Protocol Ketorolac Tromethamine 15 mg 07/31/24 15:31 Ketorolac Inj 30 Mg/Ml Vial IVP 08/05/24 15:30 Q6HR PRN Pain 4-6 Meperidine HCl 25 mg 07/31/24 16:51 08/01/24 05:27 Meperidine Inj 50 Mg/Ml Vial IVP 08/05/24 16:48 25 mg Q4HR PRN Administration pain 7-10 Ondansetron HCl 4 mg 07/31/24 15:15 Ondansetron Inj 2 Mg/Ml Inj 2 Ml IVP 08/30/24 15:14 Q6H PRN NAUSEA OR VOMITING Protocol Pancreatin 1 cap 07/31/24 17:30 08/01/24 08:05 Amylase/Lipase/Protease Capsule (Pancreaze) PO 08/30/24 17:29 1 cap TIDWM MACHO Administration Polyethylene Glycol 17 gm 08/01/24 09:00 08/01/24 08:05 Polyethylene Glycol 17 Gm Packet PO 08/31/24 08:59 17 gm QDAY MACH[facility] Administration Plan The patient is a 79-year-old female with a previous medical history of chronic pancreatitis, status post pancreatic surgery, insulin-dependent diabetes, skin cancer undergoing treatment who was brought to the ED by ambulance on 07/31/2024 after ground-level fall. #Acute right hip intertrochanteric fracture #Ground level fall Patient had a fall when she went to the restroom at night. Imaging showed right sided intertrochanteric fracture. Plan: - orthopedic surgeon Dr. Mccann consulted, surgery is planned for Monday - pain control as needed - physical therapy after surgery #Anemia Patient had EGD and colonoscopy in 2023 that showed internal hemorrhoids and non-bleeding angiodysplasias. Plan: - monitor CBC - iron panel - transfuse if Hgb <7 #Chronic pancreatitis #S/p pancreatotomy #Insulin dependent diabetes mellitus #Body mass deficit #Malabsorbtion Plan: - pancreaze TID with meals - dietitian consult - insulin sliding scale - hypoglycemia protocol Health maintenance: FEN: carbohydrate consistent DVT prophylaxis: SCDs GI prophylaxis: none Dispo: med surg CODE STATUS: Full code Plan of care discussed with attending Dr. Block. Gabi Reddy MD, PGY 1. Attending Provider Attestation/Addendum Bailey Chan DO, attest that I was physically present for the cheng portions of the service and evaluated the patient with the resident and I reviewed and discussed the case with the resident and agree with the resident's findings and plans of care as documented above Patient seen and evaluated this AM. She states she is doing well. Plan for surgery tomorrow. Will place NPO after midnight. Echo pending for cardiac clearance. Patient reports pain control with demerol. She states that she gets hallucinations with other opioids. Continue with current management. She denies any chest pain, shortness of breath, nausea, vomtiing, palpiations, abdominal pain otherwise.
[2024-08-01] MEDS: INSULIN LISPRO (AdmeLOG) 1 UNIT/0.01 ML UNIT SC ×2 (11:28→17:16)
--- NOTE | 2024-08-01 14:22 | PC.SS ---
Rounding note: orthopedic surgery planned for tomorrow.
--- NOTE | 2024-08-01 15:08 | PC.DIETICIAN ---
Dietitian note: Pt meets criteria for moderate chronic disease or condition related malnutrition, as evidenced by severe muscle wasting, severe subcutaneous fat loss, BMI 16.9 Thank you
--- NOTE | 2024-08-01 16:08 | ECHO_ITS ---
Transthoracic Echo Report Ht (in): 66 Wt (lb): 105 Exam Location: Echo Lab Status: Inpatient Coal Sample Tester: Raven Bonilla Indications: Procedure Performed: BP: 138 / 70 HR: 80 Technical Quality: Adequate MEASUREMENTS (Male / Female) Normal Values 2D ECHO LV Diastolic Diameter PLAX 5.2 cm 4.2 - 5.9 / 3.9 - 5.3 cm LV Systolic Diameter PLAX 3.7 cm IVS Diastolic Thickness 0.4 cm 0.6 - 1.0 / 0.6 - 0.9 cm LVPW Diastolic Thickness 0.6 cm 0.6 - 1.0 / 0.6 - 0.9 cm LV Relative Wall Thickness 0.2 LVOT Diameter 2.1 cm LA Volume Index 34.5 cm?/m? 16 - 28 cm?/m? Ascending Aorta Diameter 3.6 cm DOPPLER AV Peak Velocity 97.7 cm/s AV Peak Gradient 3.8 mmHg LVOT Peak Velocity 90.5 cm/s LVOT Peak Gradient 3.3 mmHg AV Area Cont Eq pk 3.2 cm? TR Peak Velocity 220.0 cm/s TR Peak Gradient 19.4 mmHg PV Peak Velocity 87.8 cm/s PV Peak Gradient 3.1 mmHg FINDINGS Left Ventricle Normal left ventricular size, wall thickness, systolic function with no obvious regional wall motion abnormalities. The ejection fraction is visually estimated at 55%. Unable to assess diastology due to atrial fibrillation. Right Ventricle The right ventricle is normal in size and systolic function. The estimated right ventricular systolic pressure, 19 mmHg. RAP 15mmHg. Left Atrium The left atrium is normal by two-dimensional, color flow and Doppler imaging with no structural abnormalities, no thrombus formation present. Right Atrium The right atrium is mildly dialted. Atrial Septum The interatrial septum appears normal with no evidence of a shunt. Aorta The aorta is normal by two-dimensional, color flow and Doppler interrogation. Mitral Valve The mitral valve is normal by two-dimensional, color flow and Doppler interrogation. There is mild mitral regurgitation. Aortic Valve The aortic valve is trileaflet and normal by two-dimensional, color flow and Doppler interrogation. There is no significant aortic valve regurgitation. Tricuspid Valve The tricuspid valve is normal by two-dimensional, color flow and Doppler interrogation. There is mild tricuspid regurgitation. Pulmonic Valve The pulmonic valve is not well visualized. There is no significant pulmonic valve regurgitation. Vessels The pulmonary artery appears normal. The inferior vena cava is dilated with poor inspiratory collapse. Pericardium The pericardium is normal by two-dimensional imaging. There is no significant pericardial effusion. CONCLUSIONS Indications: Cardiac Clearance Normal LV size and function. Estimated EF 55%. RV normal. MARIAN. Mild MR, TR. Dilated IVC. No pericardial effusion. Deisi Piña (Electronically Signed) Final Date: 01 August 2024 13:22
--- NOTE | 2024-08-01 16:48 | PC.SS ---
Initial assessment: this is 79-year old female admitted for hip fracture. Patient confirmed demographic information. Informs she lives at home with spouse Jb Salgado. Patient identified her spouse as her emergency contact. Patient informs she gu snot use any DME in the home. Patient indicates her helps her at home with her care and has been normally independent with ambulation. Patient states her PCP is Dr. Falguni Orantes. Patient followed by Dr. Keller in [place] for oncology. Patient informs she does not want SNF. Patient preferred home health services. No preferred agency identified at this time. Patient indicates her family will transport home, informs she has alot of grandchildren who will be helping her with her home care and needs. Patient did not identify any needs at this time. Patient scheduled for ortho surgery Wednesday 08/02. D/c plan: home health Next of kin: spouse, Jb [phone]
--- NOTE | 2024-08-01 22:07 | ESPR_ITS ---
Documentation for date of: 08/01/24 Subjective Subjective Interval history: Patient evaluated In the process of getting cardiac clearance for surgical intervention Exam Vital Signs Temp Pulse Resp BP Pulse Ox O2 Del Method 97.6 F 91 18 125/64 97 Room Air 08/01/24 20:00 08/01/24 20:00 08/01/24 20:00 08/01/24 20:00 08/01/24 20:00 08/01/24 20:00 Objective Labs 08/01/24 05:23 08/01/24 05:23 Labs: Laboratory Results - last 24 hr 08/01/24 08/01/24 05:23 17:08 WBC 8.5 RBC 3.05 L Hgb 10.1 L Hct 29.3 L MCV 96 MCH 33.1 MCHC 34.5 RDW Std Deviation 48.9 H Plt Count 162 Neut % (Auto) 49 Lymph % (Auto) 32 [place] % (Auto) 17 H Eos % (Auto) 2 Baso % (Auto) 0 Neut # (Auto) 4.2 Lymph # (Auto) 2.7 [place] # (Auto) 1.4 H Eos # (Auto) 0.2 Baso # (Auto) 0.0 Immature Gran # (Auto) 0.01 H Absolute Nucleated RBC 0.00 Immature Gran % 0 Nucleated RBC % 0 Sodium 143 Potassium 4.1 D Chloride 106 Carbon Dioxide 30.4 Anion Gap 7 BUN < 5 L Creatinine 0.4 L Estim Creat Clear Calc 88.6 eGFR > 60 BUN/Creatinine Ratio 13 [address]ucose [address] Glu mg/dL 128 Hemoglobin A1c 6.1 H Calculated Osmolality 283 Calcium 8.2 L Corrected Calcium 9.2 Phosphorus 2.4 Magnesium 1.5 L Total Bilirubin 0.8 ALT 21 Alkaline Phosphatase 90 Total Protein 5.0 L Albumin 2.8 L Globulin 2.2 L Albumin/Globulin Ratio 1.3 Blood Type A Positive Antibody Screen NEGATIVE Crossmatch See Detail Blood Bank Wristband ID Yes Impressions Impression: Pancreatic insufficiency Pain abdomen recurrent bouts of hypoglycemia with hyperglycemia due to pancreatic insufficiency Started the patient on Creon with meals Assessment & Plan A&P Narrative # Pancreatic insufficiency status post total pancreatectomy # Routine blood sugar recurrent bouts of hypoglycemia and hyperglycemia Patient managed with very little long-acting insulin and sliding scale Will start the patient on Creon 2 tablets with each meal # Right hip intertrochanteric fracture # Cardiac status patient 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
[2024-08-02] VITALS (22 sets, daily range): BP systolic 97–121; BP diastolic 52–67; PULSE 69–97; RESP 12–97; TEMP 36.1–37.1; O2SAT 94–100; BMI 16.9
[2024-08-02] MEDS: MEPERIDINE INJ 50 MG/ML VIAL 25 MG IVP ×3 (00:22→20:22)
[2024-08-02 05:53] LABS: Basophils % (Auto) 0 % (0-2.5); Eosinophils # (Auto) 0.2 Thou/mm3 (0.0-0.5); Eosinophils % (Auto) 3 % (0-10); Hematocrit 30.8 % (36.0-46.0); Hemoglobin 10.6 g/dL (12.0-16.0); Immature Granulocytes % (Auto) 0 % (0-0); Immature Granulocytes Auto 0.02 Thou/mm3 (0.00-0.00); Lymphocytes # (Auto) 2.5 Thou/mm3 (1.0-4.8); Lymphocytes % (Auto) 30 % (10-50); Mean Corpuscular HGB Conc 34.4 g/dl (31.0-37.0); Mean Corpuscular Hemoglobin 34.3 pg (25.0-35.0); Mean Corpuscular Volume 100 fL (80-100); Monocytes # (Auto) 1.4 Thou/mm3 (0.0-0.8); Monocytes % (Auto) 17 % (0-12); Neutrophils # (Auto) 4.2 Thou/mm3 (1.8-7.7); Neutrophils % (Auto) 50 % (37-80); Nucleated Red Blood Cell % 0 /100 WBC (0); Platelet Count 180 Thou/mm3 (140-440); RDW Standard Deviation 49.4 fL (36.4-46.3); Red Blood Count 3.09 Miln/mm3 (4.00-5.20); White Blood Count 8.4 Thou/mm3 (3.6-11.0)
[2024-08-02 06:36] LABS: Alanine Aminotransferase 19 U/L (10-49); Albumin, Serum 2.9 gm/dL (3.4-4.8); Albumin/Globulin Ratio 1.3 (1.2-2.2); Alkaline Phosphatase 94 U/L (46-116); Anion Gap 6 (7-16); Aspartate Amino Transferase 23 U/L (0-34); BUN/Creatinine Ratio 15 Ratio (12-20); Bilirubin,Total 0.9 mg/dL (0.3-1.2); Blood Urea Nitrogen 6 mg/dL (9-23); Calcium 8.1 mg/dL (8.3-10.6); Carbon Dioxide 28.2 mMol/L (20.0-31.0); Chloride 106 mMol/L (98-107); Creatinine (Component) 0.4 mg/dL (0.6-1.3); Estimated Creatinine Clearance 88.6 mL/min (>60); Globulin 2.3 gm/dL (2.3-3.5); Glucose 140 mg/dL (74-106); Magnesium 1.8 mg/dL (1.6-2.6); Osmolality,Calculated 279 (275-295); Phosphorous 3.1 mg/dL (2.4-5.1); Potassium 4.3 mMol/L (3.4-5.1); Sodium 140 mMol/L (136-145); Total Protein 5.2 gm/dL (5.7-8.2); eGFR > 60 See Note
--- NOTE | 2024-08-02 08:00 | PC.NURSE ---
dr yan at bedside explaining to pt on surgery for today. new orders received for cross match and consent see new orders for reference.
--- NOTE | 2024-08-02 10:09 | PC.NURSE ---
Pt and requesting some type of fluids to maintain blood sugar levels. Md Valadez notified of this per MD continue to monitor and no new orders at this time. Pt asymptomatic at this time with a blood sugar of 109.
--- NOTE | 2024-08-02 11:57 | ESPR_ITS ---
<Statement entered by Cameron Valadez MD - 08/03/24 14:17> I discussed with and supervised the manager of international physician involved in the care of this patient. Patient assessment and plan was discussed with entire medicine team, including my attending. I agree with the assessment and plan as documented by manager of international doctor. Patient care was discussed with my attending physician Dr. Ender Valadez, PGY-2 Documentation for date of: 08/02/24 Subjective Subjective Interval history: Patient was seen and examined by the bedside. No acute overnight events. Patient reports pain is controlled. Operation is planned for today. PT eval ordered for tomorrow. Exam Vital Signs Temp Pulse Resp BP Pulse Ox O2 Del Method 97.0 F 97 17 99/52 L 97 Room Air 08/02/24 08:00 08/02/24 08:00 08/02/24 08:00 08/02/24 08:00 08/02/24 08:00 08/02/24 08:00 Narrative Exam Gen: Thin elderly female. HEENT: NCAT, PERRLA, EOMI, MMM, anicteric conjunctivae. CVS: normal S1 and S2. RRR. No M/R/G. Resp: CTA B/L. No rhonchi, rales, crackles or wheezing. Abd: soft, non-tender, non-distended. BS+ in all 4 quadrants. MSK: Right lower extremity ROM restricted, extremity is externally rotated. 1+ tibial edema. Neuro: CN II-XII grossly intact. Able to move all extremities except right lower extremity due to pain. Alert and oriented x3. Psych: appropriate mood and affect. Objective Labs 08/03/24 04:45 08/03/24 04:45 Labs: Laboratory Results - last 24 hr 08/01/24 08/02/24 17:08 05:18 WBC 8.4 RBC 3.09 L Hgb 10.6 L Hct 30.8 L MCV 100 MCH 34.3 MCHC 34.4 RDW Std Deviation 49.4 H Plt Count 180 Neut % (Auto) 50 Lymph % (Auto) 30 [place] % (Auto) 17 H Eos % (Auto) 3 Baso % (Auto) 0 Neut # (Auto) 4.2 Lymph # (Auto) 2.5 [place] # (Auto) 1.4 H Eos # (Auto) 0.2 Baso # (Auto) 0.0 Immature Gran # (Auto) 0.02 H Absolute Nucleated RBC 0.00 Immature Gran % 0 Nucleated RBC % 0 Sodium 140 Potassium 4.3 Chloride 106 Carbon Dioxide 28.2 Anion Gap 6 L BUN 6 L Creatinine 0.4 L Estim Creat Clear Calc 88.6 eGFR > 60 BUN/Creatinine Ratio 15 Glucose 140 H Calculated Osmolality 279 Calcium 8.1 L Corrected Calcium 9.0 Phosphorus 3.1 Magnesium 1.8 Total Bilirubin 0.9 AST 23 ALT 19 Alkaline Phosphatase 94 Total Protein 5.2 L Albumin 2.9 L Globulin 2.3 Albumin/Globulin Ratio 1.3 Blood Type A Positive Antibody Screen NEGATIVE Crossmatch See Detail Blood Bank Wristband ID Yes Quality Measures Quality Measures VTE prophylaxis Advance care planning discussed with:: patient Assessment & Plan Assessment Current Active Medications: Generic Name Dose Route Start Last Admin Trade Name Freq PRN Reason Stop Dose Admin Acetaminophen 650 mg 07/31/24 15:34 Acetaminophen 325 Mg Tablet PO 08/30/24 15:14 Q6H PRN Fever >100.3 or pain 1-3 Sodium Chloride 1,000 ml/ 0 ml 08/02/24 12:00 Gentamicin Sulfate 40 mg IRRIG 08/02/24 12:01 X1 ONE Dextrose 25 ml 07/31/24 16:02 Dextrose 50%-Water Inj 50 Ml Syringe IV 08/30/24 16:01 Q15MIN PRN BG 50-70 responsive npo pt Dextrose 50 ml 07/31/24 16:02 07/31/24 20:24 Dextrose 50%-Water Inj 50 Ml Syringe IV 08/30/24 16:01 50 ml Q15MIN PRN Administration BG <50 OR BG <70 & pt unresponsive Docusate Sodium 200 mg 08/02/24 09:00 08/02/24 07:30 Docusate Sod 100 Mg Capsule PO 09/01/24 08:59 Not Given QDAY [facility] Protocol Glucagon 1 mg 07/31/24 16:02 Glucagon Inj 1 Mg Vial IM Q15MIN PRN BG <70, and no IV access Insulin Human Lispro 0 unit 07/31/24 17:00 08/02/24 05:24 Insulin Lispro (Admelog) 1 Unit/0.01 Ml Unit SC 08/30/24 16:59 Not Given AC [facility] Protocol Ketorolac Tromethamine 15 mg 07/31/24 15:31 Ketorolac Inj 30 Mg/Ml Vial IVP 08/05/24 15:30 Q6HR PRN Pain 4-6 Meperidine HCl 25 mg 07/31/24 16:51 08/02/24 04:56 Meperidine Inj 50 Mg/Ml Vial IVP 08/05/24 16:48 25 mg Q4HR PRN Administration pain 7-10 Ondansetron HCl 4 mg 07/31/24 15:15 Ondansetron Inj 2 Mg/Ml Inj 2 Ml IVP 08/30/24 15:14 Q6H PRN NAUSEA OR VOMITING Protocol Pancreatin 1 cap 07/31/24 17:30 08/02/24 07:30 Amylase/Lipase/Protease Capsule (Pancreaze) PO 08/30/24 17:29 Not Given TIDWM MACHO Polyethylene Glycol 17 gm 08/01/24 09:00 08/02/24 07:30 Polyethylene Glycol 17 Gm Packet PO 08/31/24 08:59 Not Given QDAY MACHO Plan The patient is a 79-year-old female with a previous medical history of chronic pancreatitis, status post pancreatic surgery, insulin-dependent diabetes, skin cancer undergoing treatment who was brought to the ED by ambulance on 07/31/2024 after ground-level fall. #Acute right hip intertrochanteric fracture #Ground level fall Patient had a fall when she went to the restroom at night. Imaging showed right sided intertrochanteric fracture. Plan: - orthopedic surgeon Dr. Mccann consulted, surgery is planned for Monday - pain control as needed - physical therapy after surgery #Anemia Patient had EGD and colonoscopy in 2023 that showed internal hemorrhoids and non-bleeding angiodysplasias. Plan: - monitor CBC - iron panel - transfuse if Hgb <7 #Chronic pancreatitis #S/p pancreatotomy #Insulin dependent diabetes mellitus #Body mass deficit #Malabsorbtion Plan: - pancreaze TID with meals - dietitian consult - insulin sliding scale - hypoglycemia protocol Health maintenance: FEN: NPO after midnight before surgery DVT prophylaxis: SCDs GI prophylaxis: none Dispo: med surg CODE STATUS: Full code Plan of care discussed with attending Dr. Handley and PGY-2 Dr. Valadez. Gabi Reddy MD, PGY 1. Attending Provider Attestation/Addendum I attest that I was physically present for the evaluation, physical examination, lab and imaging review of the patient with the residents. I discussed the case with the residents and agree with the findings and plans of care as documented above. Patient is undergoing surgery for acute right hip intertrochanteric fracture following a ground-level fall. Analgesic regimen in place. Physical therapy ordered for tomorrow. Hemoglobin level remains stable, we will continue to monitor closely. Continues to be on Pancreaze 3 times daily, gastroenterology following closely, appreciate recommendations. Marixa Handley MD
--- NOTE | 2024-08-02 13:22 | XR_ITS ---
Examination: Right femur 3 views Fluoroscopy Date and time: August 02, 2024 1425 hours INDICATIONS: Acute intertrochanteric fracture right hip July 31, 2024, operative reduction internal fixation hip fracture TECHNIQUE AND FINDINGS: AP lateral right femur 3 views Fluoroscopy 45 seconds radiation dose 2.194 milligray Operative reduction internal fixation intertrochanteric fracture right hip with anatomic alignment Intramedullary kirstie satisfactory position IMPRESSION: Operative reduction internal fixation intertrochanteric fracture right hip with satisfactory alignment
--- NOTE | 2024-08-02 13:32 | PD.IMPROG ---
Documentation for date of: 08/02/24 Subjective Subjective Interval history: Patient does not have any cardiac symptoms Troponins are negative EKG unremarkable Exam Vital Signs Temp Pulse Resp BP Pulse Ox O2 Del Method 98.5 F 88 18 112/62 96 Room Air 08/02/24 12:00 08/02/24 12:00 08/02/24 12:00 08/02/24 12:00 08/02/24 12:00 08/02/24 12:00 Routine HEENT Exam Head: Present normocephalic and atraumatic Eye: Present EOMI and PERRL ENT: Present mucous membranes moist Routine Neck Exam Neck: Present supple and trachea midline Routine Respiratory Exam Respiratory: Present chest non-tender, lungs clear, normal breath sounds and no resp distress Routine Cardiovascular Exam Cardiovascular: Present RRR Routine Abdominal Exam Abdominal: Present soft and normoactive bowel sounds Routine Extremities Exam Extremities: Present full ROM Routine Skin Exam Skin: Present intact, dry and warm Routine Neurological Exam Neurological: Present alert, oriented X3 and CN II-XII intact Routine Psychiatric Exam Psychiatric: Present normal affect and normal thought process Objective Labs 08/02/24 05:18 08/02/24 05:18 Labs: Laboratory Results - last 24 hr 08/01/24 08/02/24 17:08 05:18 WBC 8.4 RBC 3.09 L Hgb 10.6 L Hct 30.8 L MCV 100 MCH 34.3 MCHC 34.4 RDW Std Deviation 49.4 H Plt Count 180 Neut % (Auto) 50 Lymph % (Auto) 30 [place] % (Auto) 17 H Eos % (Auto) 3 Baso % (Auto) 0 Neut # (Auto) 4.2 Lymph # (Auto) 2.5 [place] # (Auto) 1.4 H Eos # (Auto) 0.2 Baso # (Auto) 0.0 Immature Gran # (Auto) 0.02 H Absolute Nucleated RBC 0.00 Immature Gran % 0 Nucleated RBC % 0 Sodium 140 Potassium 4.3 Chloride 106 Carbon Dioxide 28.2 Anion Gap 6 L BUN 6 L Creatinine 0.4 L Estim Creat Clear Calc 88.6 eGFR > 60 BUN/Creatinine Ratio 15 Glucose 140 H Calculated Osmolality 279 Calcium 8.1 L Corrected Calcium 9.0 Phosphorus 3.1 Magnesium 1.8 Total Bilirubin 0.9 AST 23 ALT 19 Alkaline Phosphatase 94 Total Protein 5.2 L Albumin 2.9 L Globulin 2.3 Albumin/Globulin Ratio 1.3 Blood Type A Positive Antibody Screen NEGATIVE Crossmatch See Detail Blood Bank Wristband ID Yes Assessment & Plan A&P Narrative Continue current medical management Okay to proceed with surgery Patient in stable cardiac condition for the planned surgical procedure Time Spent With Patient Time: Total time spent is greater than 50% in coordination of care (as documented) at patient's floor/unit and/or counseling patient:
--- NOTE | 2024-08-02 15:35 | SUR.PHASEI ---
1429: Pt received in [facility] via hospital bed. Report from Zaid TIWARI and Dr. Morales. Pt obtunded. Resp even, unlabored. VS stable. Dressing to right lateral hip dry, clean, intact. Pt BS pre-op 91mg/dl. Anesthesia provided Dextrose IV. BS at this time 212mg/dl. 1500: Pt more alert. Resp even, unlabored. VS stable. Dressing remains dry, clean, intact. No c/o pain.
--- NOTE | 2024-08-02 15:52 | XR_ITS ---
Examination: Right femur 2 views TECHNIQUE: AP lateral right femur 2 views Date and time: 08/02/2024 1617 hours INDICATIONS: Acute intertrochanteric fracture right hip July 31, 2024, postop reduction internal fixation hip fracture today FINDINGS: Postop reduction internal fixation intertrochanteric fracture right hip Anatomic alignment Satisfactory position orthopedic hardware including intramedullary femoral kirstie IMPRESSION: Postop reduction internal fixation right hip fracture with anatomic alignment
--- NOTE | 2024-08-02 16:02 | XR_ITS ---
Examination:Right hip AP, lateral, AP pelvis 3 views Technique: Hip AP lateral, AP pelvis, 3 views Exam date and time:August 02, 2024, 1617 hours INDICATIONS: Acute intertrochanteric fracture right hip July 31, 2024, postop reduction internal fixation hip fracture today. FINDINGS: Postop reduction internal fixation right hip fracture with anatomic alignment Left hip bones of the pelvis intact IMPRESSION: Postop reduction internal fixation right hip fracture with anatomic alignment
--- NOTE | 2024-08-02 16:16 | SUR.PHASEI ---
1540: Received new order for hip and femur x-rays.
--- NOTE | 2024-08-02 16:17 | SUR.PHASEI ---
1615: Pt resting with no complaints voiced. VS stable. Dressing remains dry, clean, intact. Awaiting Radiology.
[2024-08-02] MEDS: AMYLASE/LIPASE/PROTEASE CAPSULE (Pancreaze) 1 CAP PO (17:04)
--- NOTE | 2024-08-02 17:09 | SUR.PHASEI ---
1645: Radiology completed ordered x-rays. Pt tolerated procedure with no complaints voiced. VS stable. Dressing dry, clean, intact. Bilateral pedal pulses strong, regular. Report to 3rd floor. Pt transferred to [facility] in stable condition.
--- NOTE | 2024-08-02 17:49 | PC.PT ---
Patient is FWB as per Dr. Tejada.
--- NOTE | 2024-08-02 20:15 | PD.IMPROG ---
Documentation for date of: 08/02/24 Subjective Subjective Interval history: Patient evaluated patient cleared by cardiology for surgical intervention Exam Vital Signs Temp Pulse Resp BP Pulse Ox O2 Del Method O2 Flow Rate 97.4 F 82 18 107/53 L 98 Room Air 2 08/02/24 18:30 08/02/24 19:16 08/02/24 19:16 08/02/24 18:30 08/02/24 18:30 08/02/24 18:30 08/02/24 14:50 Objective Labs 08/02/24 05:18 08/02/24 05:18 Labs: Laboratory Results - last 24 hr 08/01/24 08/02/24 17:08 05:18 WBC 8.4 RBC 3.09 L Hgb 10.6 L Hct 30.8 L MCV 100 MCH 34.3 MCHC 34.4 RDW Std Deviation 49.4 H Plt Count 180 Neut % (Auto) 50 Lymph % (Auto) 30 [place] % (Auto) 17 H Eos % (Auto) 3 Baso % (Auto) 0 Neut # (Auto) 4.2 Lymph # (Auto) 2.5 [place] # (Auto) 1.4 H Eos # (Auto) 0.2 Baso # (Auto) 0.0 Immature Gran # (Auto) 0.02 H Absolute Nucleated RBC 0.00 Immature Gran % 0 Nucleated RBC % 0 Sodium 140 Potassium 4.3 Chloride 106 Carbon Dioxide 28.2 Anion Gap 6 L BUN 6 L Creatinine 0.4 L Estim Creat Clear Calc 88.6 eGFR > 60 BUN/Creatinine Ratio 15 Glucose 140 H Calculated Osmolality 279 Calcium 8.1 L Corrected Calcium 9.0 Phosphorus 3.1 Magnesium 1.8 Total Bilirubin 0.9 AST 23 ALT 19 Alkaline Phosphatase 94 Total Protein 5.2 L Albumin 2.9 L Globulin 2.3 Albumin/Globulin Ratio 1.3 Blood Type A Positive Antibody Screen NEGATIVE Crossmatch See Detail Blood Bank Wristband ID Yes Impressions 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
[2024-08-02] MEDS: INSULIN LISPRO (AdmeLOG) 1 UNIT/0.01 ML UNIT SC (20:21)
[2024-08-02] MEDS: INSULIN GLARGINE (Lantus) 5 UNIT/0.05 ML (PER 5 UNITS) SC (22:17)
[2024-08-03] VITALS (7 sets, daily range): BP systolic 98–115; BP diastolic 50–63; PULSE 64–86; RESP 17–97; TEMP 36–37.2; O2SAT 95–99; BMI 21.1
[2024-08-03] MEDS: MEPERIDINE INJ 50 MG/ML VIAL 25 MG IVP ×3 (02:05→21:22)
[2024-08-03 06:24] LABS: Basophils % (Auto) 0 % (0-2.5); Eosinophils % (Auto) 0 % (0-10); Hematocrit 28.1 % (36.0-46.0); Hemoglobin 9.6 g/dL (12.0-16.0); Immature Granulocytes % (Auto) 1 % (0-0); Immature Granulocytes Auto 0.05 Thou/mm3 (0.00-0.00); Lymphocytes # (Auto) 1.5 Thou/mm3 (1.0-4.8); Lymphocytes % (Auto) 14 % (10-50); Mean Corpuscular HGB Conc 34.2 g/dl (31.0-37.0); Mean Corpuscular Hemoglobin 33.6 pg (25.0-35.0); Mean Corpuscular Volume 98 fL (80-100); Monocytes # (Auto) 1.5 Thou/mm3 (0.0-0.8); Monocytes % (Auto) 14 % (0-12); Neutrophils # (Auto) 7.8 Thou/mm3 (1.8-7.7); Neutrophils % (Auto) 72 % (37-80); Nucleated Red Blood Cell % 0 /100 WBC (0); Platelet Count 197 Thou/mm3 (140-440); Red Blood Count 2.86 Miln/mm3 (4.00-5.20); White Blood Count 10.8 Thou/mm3 (3.6-11.0)
[2024-08-03 06:54] LABS: Alanine Aminotransferase 25 U/L (10-49); Albumin, Serum 2.8 gm/dL (3.4-4.8); Albumin/Globulin Ratio 1.3 (1.2-2.2); Alkaline Phosphatase 89 U/L (46-116); Anion Gap 9 (7-16); Aspartate Amino Transferase 26 U/L (0-34); BUN/Creatinine Ratio 18 Ratio (12-20); Bilirubin,Total 0.6 mg/dL (0.3-1.2); Blood Urea Nitrogen 11 mg/dL (9-23); Calcium 8.2 mg/dL (8.3-10.6); Calcium (Corrected) 9.2 mg/dL (8.5-10.1); Carbon Dioxide 29.2 mMol/L (20.0-31.0); Chloride 102 mMol/L (98-107); Creatinine (Component) 0.6 mg/dL (0.6-1.3); Estimated Creatinine Clearance 73.5 mL/min (>60); Globulin 2.2 gm/dL (2.3-3.5); Glucose 270 mg/dL (74-106); Magnesium 1.8 mg/dL (1.6-2.6); Osmolality,Calculated 288 (275-295); Phosphorous 2.9 mg/dL (2.4-5.1); Sodium 140 mMol/L (136-145); eGFR > 60 See Note
[2024-08-03 06:58] LABS: Ferritin 111 ng/mL (7.3-270.7); Iron 23 mcg/dL (50-170); Percent Iron Saturation 10 % (20-55); Total Iron Binding Capacity 217 mcg/dL (250-425); Unsaturated Iron Binding 194 (225-295)
[2024-08-03] MEDS: INSULIN LISPRO (AdmeLOG) 1 UNIT/0.01 ML UNIT SC ×4 (07:46→20:12)
[2024-08-03] MEDS: AMYLASE/LIPASE/PROTEASE CAPSULE (Pancreaze) 1 CAP PO ×3 (08:33→17:47)
[2024-08-03] MEDS: DOCUSATE SOD 100 MG CAPSULE 200 MG PO (08:33)
[2024-08-03] MEDS: POLYETHYLENE GLYCOL 17 GM PACKET PO (08:34)
--- NOTE | 2024-08-03 09:36 | ESPR_ITS ---
<Statement entered by Cameron Valadez MD - 08/05/24 02:16> I discussed with and supervised the gallery intern physician involved in the care of this patient. Patient assessment and plan was discussed with entire medicine team, including my attending. I agree with the assessment and plan as documented by gallery intern doctor. Patient care was discussed with my attending physician Dr.Bishwakarma Cameron Valadez, PGY-2 Documentation for date of: 08/03/24 Subjective Subjective Interval history: Patient was seen and examined by the bedside. No acute overnight events. Patient reports improvement in her pain and ROM in the right lower extremity. Pending PT eval. She and her prefer outpatient PT. Exam Vital Signs Temp Pulse Resp BP Pulse Ox O2 Del Method O2 Flow Rate 96.9 F 69 19 105/51 L 97 Room Air 2 08/03/24 07:57 08/03/24 07:57 08/03/24 07:57 08/03/24 07:57 08/03/24 07:57 08/03/24 07:57 08/02/24 14:50 Narrative Exam Gen: Thin elderly female. HEENT: NCAT, PERRLA, EOMI, MMM, anicteric conjunctivae. CVS: normal S1 and S2. RRR. No M/R/G. Resp: CTA B/L. No rhonchi, rales, crackles or wheezing. Abd: soft, non-tender, non-distended. BS+ in all 4 quadrants. MSK: Right lower extremity ROM restricted. 1+ tibial edema. Neuro: CN II-XII grossly intact. Able to move all extremities. Alert and oriented x3. Psych: appropriate mood and affect. Objective Labs 08/05/24 04:56 08/05/24 04:56 Labs: Laboratory Results - last 24 hr 08/03/24 04:45 WBC 10.8 RBC 2.86 L Hgb 9.6 L Hct 28.1 L MCV 98 MCH 33.6 MCHC 34.2 RDW Std Deviation 49.0 H Plt Count 197 Neut % (Auto) 72 Lymph % (Auto) 14 [place] % (Auto) 14 H Eos % (Auto) 0 Baso % (Auto) 0 Neut # (Auto) 7.8 H Lymph # (Auto) 1.5 [place] # (Auto) 1.5 H Eos # (Auto) 0.0 Baso # (Auto) 0.0 Immature Gran # (Auto) 0.05 H Absolute Nucleated RBC 0.00 Immature Gran % 1 H Nucleated RBC % 0 Sodium 140 Potassium 5.0 D Chloride 102 Carbon Dioxide 29.2 Anion Gap 9 BUN 11 Creatinine 0.6 Estim Creat Clear Calc 73.5 eGFR > 60 BUN/Creatinine Ratio 18 Glucose 270 H D Calculated Osmolality 288 Calcium 8.2 L Corrected Calcium 9.2 Phosphorus 2.9 Magnesium 1.8 Iron 23 L TIBC 217 L Iron Saturation 10 L Unsat Iron Binding 194 L Ferritin 111 Total Bilirubin 0.6 AST 26 ALT 25 Alkaline Phosphatase 89 Total Protein 5.0 L Albumin 2.8 L Globulin 2.2 L Albumin/Globulin Ratio 1.3 Quality Measures Quality Measures VTE prophylaxis Advance care planning discussed with:: patient Assessment & Plan Assessment Current Active Medications: Generic Name Dose Route Start Last Admin Trade Name Freq PRN Reason Stop Dose Admin Acetaminophen 650 mg 07/31/24 15:34 Acetaminophen 325 Mg Tablet PO 08/30/24 15:14 Q6H PRN Fever >100.3 or pain 1-3 Aspirin 81 mg 08/03/24 21:00 Aspirin Ec 81 Mg [place] PO 09/02/24 20:59 BID MACHO Dextrose 25 ml 07/31/24 16:02 Dextrose 50%-Water Inj 50 Ml Syringe IV 08/30/24 16:01 Q15MIN PRN BG 50-70 responsive npo pt Dextrose 50 ml 07/31/24 16:02 07/31/24 20:24 Dextrose 50%-Water Inj 50 Ml Syringe IV 08/30/24 16:01 50 ml Q15MIN PRN Administration BG <50 OR BG <70 & pt unresponsive Docusate Sodium 200 mg 08/02/24 09:00 08/03/24 08:33 Docusate Sod 100 Mg Capsule PO 09/01/24 08:59 200 mg QDAY MACHO Administration Protocol Glucagon 1 mg 07/31/24 16:02 Glucagon Inj 1 Mg Vial IM Q15MIN PRN BG <70, and no IV access Insulin Glargine 5 unit 08/02/24 22:00 08/02/24 22:17 Insulin Glargine (Lantus) 5 Unit/0.05 Ml (Per 5 Units) SC 09/01/24 21:59 5 unit HS MACHO Administration Insulin Human Lispro 0 unit 08/02/24 21:00 08/03/24 07:46 Insulin Lispro (Admelog) 1 Unit/0.01 Ml Unit SC 09/01/24 20:59 2 unit ACHS MACHO Administration Protocol Ketorolac Tromethamine 15 mg 07/31/24 15:31 Ketorolac Inj 30 Mg/Ml Vial IVP 08/05/24 15:30 Q6HR PRN Pain 4-6 Meperidine HCl 25 mg 07/31/24 16:51 08/03/24 02:05 Meperidine Inj 50 Mg/Ml Vial IVP 08/05/24 16:48 25 mg Q4HR PRN Administration pain 7-10 Ondansetron HCl 4 mg 07/31/24 15:15 Ondansetron Inj 2 Mg/Ml Inj 2 Ml IVP 08/30/24 15:14 Q6H PRN NAUSEA OR VOMITING Protocol Pancreatin 1 cap 07/31/24 17:30 08/03/24 08:33 Amylase/Lipase/Protease Capsule (Pancreaze) PO 08/30/24 17:29 1 cap TIDWM MACHO Administration Polyethylene Glycol 17 gm 08/01/24 09:00 08/03/24 08:34 Polyethylene Glycol 17 Gm Packet PO 08/31/24 08:59 17 gm QDAY MACHO Administration Plan The patient is a 79-year-old female with a previous medical history of chronic pancreatitis, status post pancreatic surgery, insulin-dependent diabetes, skin cancer undergoing treatment who was brought to the ED by ambulance on 07/31/2024 after ground-level fall. #Acute right hip intertrochanteric fracture #S/p right hip fracture repair 08/03/24 #Ground level fall Patient had a fall when she went to the restroom at night. Imaging showed right sided intertrochanteric fracture. Plan: - orthopedic surgeon Dr. Mccann consulted, surgery is following - pain control as needed - physical therapy eval - DVT prophylaxis #Anemia Patient had EGD and colonoscopy in 2023 that showed internal hemorrhoids and non-bleeding angiodysplasias. Iron panel showed signs of chronic iron deficiency. Plan: - monitor CBC - transfuse if Hgb <7 - iron supplement on discharge #Chronic pancreatitis #S/p pancreatotomy #Insulin dependent diabetes mellitus #Body mass deficit #Malabsorbtion Plan: - pancreaze TID with meals - dietitian consult - insulin sliding scale - hypoglycemia protocol Health maintenance: FEN: carbohydrate consistent low DVT prophylaxis: aspirin 81 mg BID GI prophylaxis: none Dispo: med surg CODE STATUS: Full code Plan of care discussed with attending Dr. Handley and PGY-2 Dr. Valadez. Gabi Reddy MD, PGY 1. Attending Provider Attestation/Addendum I attest that I was physically present for the evaluation, physical examination, lab and imaging review of the patient with the residents. I discussed the case with the residents and agree with the findings and plans of care as documented above. Marixa Handley MD
--- NOTE | 2024-08-03 10:12 | PC.SS ---
Bedside Commode Patient is physically incapable of utilizing regular toilet facilities because his or her diagnosis confines the patient to a single room. Patient is confined to a single level, and there is no toilet on that level; patient cannot access the toilet facilities in a timely manner due to lack of ambulation. Walkers The diagnosis creates mobility limitation that significantly impairs ability to participate in the patients activities of daily living either in their entirety, or in a reasonable time frame. Also the patient is able to safely use the walker and the patient?s mobility is sufficiently resolved with the use of the walker and cane has been ruled out.
--- NOTE | 2024-08-03 10:13 | PC.SS ---
SS was informed by patient's nurse, Zuleika that patient was requesting a FWW. SS contacted Dr. Kang in regards FWW. DR. Saldivar agreeable to order FWW for patient, however DR. Kang needs to fill out form. SS will submit clinicals through [employer] for FWW and commode as also requested by patient. SS will need to obtain Dr. Saldivar's signature and send off through [employer]. SS notified patient's nurse Zuleika. DME form and Medicare guidelines form left in chart for Dr. Kang to sign.
--- NOTE | 2024-08-03 11:30 | PC.PT ---
08/03/2024 PT eval performed, Patient / CG report no FWW at home so patient will need a walker to get in/ out of car as well as any transfer and for ambulation. Patient desires to attend outpatient PT at [facility]
[2024-08-03] MEDS: ACETAMINOPHEN 325 MG TABLET 650 MG PO (14:04)
--- NOTE | 2024-08-03 14:27 | PC.SS ---
SS follow up note; SS sent DME referral for FWW and 3 in one commode to [facility], they will contact patient for Delivery.
--- NOTE | 2024-08-03 15:44 | PC.SS ---
SS follow up note; PT eval pending patient will discharge home with . Pending Surgery clearance.
--- NOTE | 2024-08-03 16:55 | PD.IMPROG ---
Documentation for date of: 08/03/24 Subjective Subjective Interval history: Patient evaluated She was able to stand and take few steps Spoke with her Exam Vital Signs Temp Pulse Resp BP Pulse Ox O2 Del Method O2 Flow Rate 96.8 F 75 19 98/52 L 98 Room Air 2 08/03/24 16:00 08/03/24 16:00 08/03/24 16:00 08/03/24 16:00 08/03/24 16:00 08/03/24 16:00 08/02/24 14:50 Objective Labs 08/03/24 04:45 08/03/24 04:45 Labs: Laboratory Results - last 24 hr 08/03/24 04:45 WBC 10.8 RBC 2.86 L Hgb 9.6 L Hct 28.1 L MCV 98 MCH 33.6 MCHC 34.2 RDW Std Deviation 49.0 H Plt Count 197 Neut % (Auto) 72 Lymph % (Auto) 14 [place] % (Auto) 14 H Eos % (Auto) 0 Baso % (Auto) 0 Neut # (Auto) 7.8 H Lymph # (Auto) 1.5 [place] # (Auto) 1.5 H Eos # (Auto) 0.0 Baso # (Auto) 0.0 Immature Gran # (Auto) 0.05 H Absolute Nucleated RBC 0.00 Immature Gran % 1 H Nucleated RBC % 0 Sodium 140 Potassium 5.0 D Chloride 102 Carbon Dioxide 29.2 Anion Gap 9 BUN 11 Creatinine 0.6 Estim Creat Clear Calc 73.5 eGFR > 60 BUN/Creatinine Ratio 18 Glucose 270 H D Calculated Osmolality 288 Calcium 8.2 L Corrected Calcium 9.2 Phosphorus 2.9 Magnesium 1.8 Iron 23 L TIBC 217 L Iron Saturation 10 L Unsat Iron Binding 194 L Ferritin 111 Total Bilirubin 0.6 AST 26 ALT 25 Alkaline Phosphatase 89 Total Protein 5.0 L Albumin 2.8 L Globulin 2.2 L Albumin/Globulin Ratio 1.3 Impressions Impression: Right hip fracture status post ORIF pancreatic insufficiency started the patient on Creon fluctuating blood sugars with hypoglycemia and hyperglycemia Assessment & Plan A&P Narrative Continue current medical management Okay to proceed with surgery Patient in stable cardiac condition for the planned surgical procedure Time Spent With Patient Time: Total time spent is greater than 50% in coordination of care (as documented) at patient's floor/unit and/or counseling patient:
[2024-08-03] MEDS: INSULIN GLARGINE (Lantus) 5 UNIT/0.05 ML (PER 5 UNITS) SC (20:12)
[2024-08-03] MEDS: ASPIRIN EC 81 MG TABEC PO (20:13)
[2024-08-04] VITALS: BP 136/89; PULSE 87; RESP 18; TEMP 36.6; O2SAT 97
[2024-08-04 04:00] VITALS: BP 122/58; PULSE 90; RESP 14; TEMP 37.1; O2SAT 95
[2024-08-04] MEDS: MEPERIDINE INJ 50 MG/ML VIAL 25 MG IVP ×4 (04:12→21:41)
[2024-08-04 06:00] VITALS: BMI 20.9
[2024-08-04 06:26] LABS: Basophils % (Auto) 0 % (0-2.5); Eosinophils # (Auto) 0.2 Thou/mm3 (0.0-0.5); Eosinophils % (Auto) 2 % (0-10); Hematocrit 26.9 % (36.0-46.0); Hemoglobin 9.1 g/dL (12.0-16.0); Immature Granulocytes % (Auto) 0 % (0-0); Immature Granulocytes Auto 0.03 Thou/mm3 (0.00-0.00); Lymphocytes # (Auto) 2.5 Thou/mm3 (1.0-4.8); Lymphocytes % (Auto) 27 % (10-50); Mean Corpuscular HGB Conc 33.8 g/dl (31.0-37.0); Mean Corpuscular Hemoglobin 33.7 pg (25.0-35.0); Mean Corpuscular Volume 100 fL (80-100); Monocytes # (Auto) 1.4 Thou/mm3 (0.0-0.8); Monocytes % (Auto) 15 % (0-12); Neutrophils # (Auto) 5.3 Thou/mm3 (1.8-7.7); Neutrophils % (Auto) 56 % (37-80); Nucleated Red Blood Cell % 0 /100 WBC (0); Platelet Count 162 Thou/mm3 (140-440); RDW Standard Deviation 49.7 fL (36.4-46.3); White Blood Count 9.5 Thou/mm3 (3.6-11.0)
[2024-08-04 07:00] LABS: Alanine Aminotransferase 19 U/L (10-49); Albumin, Serum 2.7 gm/dL (3.4-4.8); Albumin/Globulin Ratio 1.3 (1.2-2.2); Alkaline Phosphatase 79 U/L (46-116); Anion Gap 6 (7-16); Aspartate Amino Transferase 27 U/L (0-34); BUN/Creatinine Ratio 33 Ratio (12-20); Bilirubin,Total 0.6 mg/dL (0.3-1.2); Blood Urea Nitrogen 13 mg/dL (9-23); Calcium 7.8 mg/dL (8.3-10.6); Calcium (Corrected) 8.8 mg/dL (8.5-10.1); Chloride 103 mMol/L (98-107); Creatinine (Component) 0.4 mg/dL (0.6-1.3); Estimated Creatinine Clearance 109.6 mL/min (>60); Globulin 2.1 gm/dL (2.3-3.5); Glucose 98 mg/dL (74-106); Magnesium 1.6 mg/dL (1.6-2.6); Osmolality,Calculated 279 (275-295); Phosphorous 1.9 mg/dL (2.4-5.1); Sodium 140 mMol/L (136-145); Total Protein 4.8 gm/dL (5.7-8.2); eGFR > 60 See Note
[2024-08-04 07:41] VITALS: BP 108/58; PULSE 74; RESP 16; TEMP 36.3; O2SAT 97
[2024-08-04] MEDS: POLYETHYLENE GLYCOL 17 GM PACKET PO (08:20)
[2024-08-04] MEDS: AMYLASE/LIPASE/PROTEASE CAPSULE (Pancreaze) 1 CAP PO ×3 (08:21→17:37)
[2024-08-04] MEDS: DOCUSATE SOD 100 MG CAPSULE 200 MG PO (08:21)
[2024-08-04] MEDS: ASPIRIN EC 81 MG TABEC PO ×2 (08:21→20:53)
[2024-08-04] MEDS: NAPH,KPH MBDB 1 PACKET (1.5 GM) PO (08:55)
--- NOTE | 2024-08-04 11:47 | PD.RESPRO ---
Documentation for date of: 08/04/24 Subjective Subjective Interval history: No acute overnight events. Reports feeling well today, working with physical therapy, able to ambulate but with pain. Tolerating oral intake, having regular bowel movements. Denies fever, chills, headaches, chest pain, sob, cough, GI or urinary symptoms. Vitals are stable. CBC and CMP reviewed and without significant changes, overall stable. Touch base with Dr. Mccann, patient is cleared for discharge, currently pending DME orders. Exam Vital Signs Temp Pulse Resp BP Pulse Ox O2 Del Method O2 Flow Rate 97.3 F 74 16 108/58 L 97 Room Air 2 08/04/24 07:41 08/04/24 07:41 08/04/24 07:41 08/04/24 07:41 08/04/24 07:41 08/04/24 04:00 08/02/24 14:50 Narrative Exam Gen: Thin elderly female. HEENT: NCAT, PERRLA, EOMI, MMM, anicteric conjunctivae. CVS: normal S1 and S2. RRR. No M/R/G. Resp: CTA B/L. No rhonchi, rales, crackles or wheezing. Abd: soft, non-tender, non-distended. BS+ in all 4 quadrants. MSK: Right lower extremity ROM restricted. 1+ tibial edema. Neuro: CN II-XII grossly intact. Able to move all extremities. Alert and oriented x3. Psych: appropriate mood and affect. Objective Labs 08/05/24 04:56 08/05/24 04:56 Labs: Laboratory Results - last 24 hr 08/04/24 04:51 WBC 9.5 RBC 2.70 L Hgb 9.1 L Hct 26.9 L MCV 100 MCH 33.7 MCHC 33.8 RDW Std Deviation 49.7 H Plt Count 162 D Neut % (Auto) 56 Lymph % (Auto) 27 [place] % (Auto) 15 H Eos % (Auto) 2 Baso % (Auto) 0 Neut # (Auto) 5.3 Lymph # (Auto) 2.5 [place] # (Auto) 1.4 H Eos # (Auto) 0.2 Baso # (Auto) 0.0 Immature Gran # (Auto) 0.03 H Absolute Nucleated RBC 0.00 Immature Gran % 0 Nucleated RBC % 0 Sodium 140 Potassium 4.0 D Chloride 103 Carbon Dioxide 31.0 Anion Gap 6 L BUN 13 Creatinine 0.4 L Estim Creat Clear Calc 109.6 eGFR > 60 BUN/Creatinine Ratio 33 H Glucose 98 D Calculated Osmolality 279 Calcium 7.8 L Corrected Calcium 8.8 Phosphorus 1.9 L Magnesium 1.6 Total Bilirubin 0.6 AST 27 ALT 19 Alkaline Phosphatase 79 Total Protein 4.8 L Albumin 2.7 L Globulin 2.1 L Albumin/Globulin Ratio 1.3 Quality Measures Quality Measures VTE prophylaxis Advance care planning discussed with:: patient Assessment & Plan Assessment Current Active Medications: Generic Name Dose Route Start Last Admin Trade Name Freq PRN Reason Stop Dose Admin Acetaminophen 650 mg 07/31/24 15:34 08/03/24 14:04 Acetaminophen 325 Mg Tablet PO 08/30/24 15:14 650 mg Q6H PRN Administration Fever >100.3 or pain 1-3 Aspirin 81 mg 08/03/24 21:00 08/04/24 08:21 Aspirin Ec 81 Mg Tabec PO 09/02/24 20:59 81 mg BID MACHO Administration Dextrose 25 ml 07/31/24 16:02 Dextrose 50%-Water Inj 50 Ml Syringe IV 08/30/24 16:01 Q15MIN PRN BG 50-70 responsive npo pt Dextrose 50 ml 07/31/24 16:02 07/31/24 20:24 Dextrose 50%-Water Inj 50 Ml Syringe IV 08/30/24 16:01 50 ml Q15MIN PRN Administration BG <50 OR BG <70 & pt unresponsive Docusate Sodium 200 mg 08/02/24 09:00 08/04/24 08:21 Docusate Sod 100 Mg Capsule PO 09/01/24 08:59 200 mg QDAY MACHO Administration Protocol Glucagon 1 mg 07/31/24 16:02 Glucagon Inj 1 Mg Vial IM Q15MIN PRN BG <70, and no IV access Insulin Glargine 5 unit 08/02/24 22:00 08/03/24 20:12 Insulin Glargine (Lantus) 5 Unit/0.05 Ml (Per 5 Units) SC 09/01/24 21:59 5 unit HS MACHO Administration Insulin Human Lispro 0 unit 08/02/24 21:00 08/04/24 07:17 Insulin Lispro (Admelog) 1 Unit/0.01 Ml Unit SC 09/01/24 20:59 Not Given ACHS MACHO Protocol Ketorolac Tromethamine 15 mg 07/31/24 15:31 Ketorolac Inj 30 Mg/Ml Vial IVP 08/05/24 15:30 Q6HR PRN Pain 4-6 Meperidine HCl 25 mg 07/31/24 16:51 08/04/24 04:12 Meperidine Inj 50 Mg/Ml Vial IVP 08/05/24 16:48 25 mg Q4HR PRN Administration pain 7-10 Ondansetron HCl 4 mg 07/31/24 15:15 Ondansetron Inj 2 Mg/Ml Inj 2 Ml IVP 08/30/24 15:14 Q6H PRN NAUSEA OR VOMITING Protocol Pancreatin 1 cap 07/31/24 17:30 08/04/24 08:21 Amylase/Lipase/Protease Capsule (Pancreaze) PO 08/30/24 17:29 1 cap TIDWM MACHO Administration Polyethylene Glycol 17 gm 08/01/24 09:00 08/04/24 08:20 Polyethylene Glycol 17 Gm Packet PO 08/31/24 08:59 17 gm QDAY MACHO Administration Plan The patient is a 79-year-old female with a previous medical history of chronic pancreatitis, status post pancreatic surgery, insulin-dependent diabetes, skin cancer undergoing treatment who was brought to the ED by ambulance on 07/31/2024 after ground-level fall. Vitals are stable. Cleared for discharge by orthopedic. Will continue on daily ASPIRIN for DVT prophylaxis. Overall stable for discharge, afebrile, pain controlled, tolerating oral intake without nausea or vomiting, having regular bowel movements. Currently pending DME orders. #Acute right hip intertrochanteric fracture #S/p right hip fracture repair 08/03/24 #Ground level fall Patient had a fall when she went to the restroom at night. Imaging showed right sided intertrochanteric fracture. Plan: - orthopedic surgeon Dr. Mccann consulted, surgery is following - pain control as needed - physical therapy eval - DVT prophylaxis #Anemia Patient had EGD and colonoscopy in 2023 that showed internal hemorrhoids and non-bleeding angiodysplasias. Iron panel showed signs of chronic iron deficiency. Plan: - monitor CBC - transfuse if Hgb <7 - iron supplement on discharge #Chronic pancreatitis #S/p pancreatotomy #Insulin dependent diabetes mellitus #Body mass deficit #Malabsorbtion Plan: - pancreaze TID with meals - dietitian consult - insulin sliding scale - hypoglycemia protocol Health maintenance: FEN: carbohydrate consistent low DVT prophylaxis: aspirin 81 mg BID GI prophylaxis: none Dispo: med surg CODE STATUS: Full code Plan of care discussed with attending Dr. Handley and PGY-2 Dr. Valadez. Gabi Reddy MD, PGY 1. Attending Provider Attestation/Addendum I have discussed and was present for the essential components of the history, physical examination, diagnosis, and treatment plan with the resident. I agree with the patient's care as documented by the resident and amended herein by me. Kieran Pinzon DO. Discharge pending DME delivery, likely tomorrow Although this document has been carefully reviewed, there may still be some phonetic and other typographical errors. These errors are purely grammatical due to imperfections in the software program and should not be construed in any way to compromise the substance of the patient's medical care during this visit.
[2024-08-04 11:54] VITALS: BP 124/75; PULSE 93; RESP 16; TEMP 36.6; O2SAT 97
[2024-08-04] MEDS: INSULIN LISPRO (AdmeLOG) 1 UNIT/0.01 ML UNIT SC ×3 (12:13→20:53)
--- NOTE | 2024-08-04 12:18 | PC.SS ---
SS met with pt at at bedside and gave them update on DME ordered. Due to weekend order will not be processed till [place]. SS provided them with [employer] information.
[2024-08-04 16:00] VITALS: BP 108/54; PULSE 91; RESP 17; TEMP 36.9; O2SAT 97
--- NOTE | 2024-08-04 17:19 | ESPR_ITS ---
Documentation for date of: 08/04/24 Subjective Subjective Interval history: Physical therapy to continue Exam Vital Signs Temp Pulse Resp BP Pulse Ox O2 Del Method O2 Flow Rate 98.4 F 91 17 108/54 L 97 Room Air 2 08/04/24 16:00 08/04/24 16:00 08/04/24 16:00 08/04/24 16:00 08/04/24 16:00 08/04/24 04:00 08/02/24 14:50 Objective Labs 08/04/24 04:51 08/04/24 04:51 Labs: Laboratory Results - last 24 hr 08/01/24 08/04/24 17:08 04:51 WBC 9.5 RBC 2.70 L Hgb 9.1 L Hct 26.9 L MCV 100 MCH 33.7 MCHC 33.8 RDW Std Deviation 49.7 H Plt Count 162 D Neut % (Auto) 56 Lymph % (Auto) 27 [place] % (Auto) 15 H Eos % (Auto) 2 Baso % (Auto) 0 Neut # (Auto) 5.3 Lymph # (Auto) 2.5 [place] # (Auto) 1.4 H Eos # (Auto) 0.2 Baso # (Auto) 0.0 Immature Gran # (Auto) 0.03 H Absolute Nucleated RBC 0.00 Immature Gran % 0 Nucleated RBC % 0 Sodium 140 Potassium 4.0 D Chloride 103 Carbon Dioxide 31.0 Anion Gap 6 L BUN 13 Creatinine 0.4 L Estim Creat Clear Calc 109.6 eGFR > 60 BUN/Creatinine Ratio 33 H Glucose 98 D Calculated Osmolality 279 Calcium 7.8 L Corrected Calcium 8.8 Phosphorus 1.9 L Magnesium 1.6 Total Bilirubin 0.6 AST 27 ALT 19 Alkaline Phosphatase 79 Total Protein 4.8 L Albumin 2.7 L Globulin 2.1 L Albumin/Globulin Ratio 1.3 Crossmatch See Detail Impressions Impression: # Intertrochanteric fracture right hip status post ORIF recommended physical therapy at [facility] in [place] if possible # pancreatic insufficiency On pancreatic enzyme replacement Continue current management Assessment & Plan A&P Narrative Continue current medical management Okay to proceed with surgery Patient in stable cardiac condition for the planned surgical procedure Time Spent With Patient Time: Total time spent is greater than 50% in coordination of care (as documented) at patient's floor/unit and/or counseling patient:
[2024-08-04 20:00] VITALS: BP 110/55; PULSE 99; RESP 17; TEMP 37.3; O2SAT 93
[2024-08-04] MEDS: INSULIN GLARGINE (Lantus) 5 UNIT/0.05 ML (PER 5 UNITS) SC (20:53)
[2024-08-05] VITALS: BP 109/58; PULSE 85; RESP 17; TEMP 36.4; O2SAT 95
[2024-08-05] MEDS: MEPERIDINE INJ 50 MG/ML VIAL 25 MG IVP (03:11)
[2024-08-05 03:55] VITALS: BP 117/65; PULSE 68; RESP 17; TEMP 36.4; O2SAT 97
[2024-08-05 06:00] VITALS: BMI 20.7
[2024-08-05 06:13] LABS: Basophils % (Auto) 0 % (0-2.5); Eosinophils # (Auto) 0.3 Thou/mm3 (0.0-0.5); Eosinophils % (Auto) 3 % (0-10); Hematocrit 28.2 % (36.0-46.0); Hemoglobin 9.2 g/dL (12.0-16.0); Immature Granulocytes % (Auto) 0 % (0-0); Immature Granulocytes Auto 0.03 Thou/mm3 (0.00-0.00); Lymphocytes # (Auto) 2.2 Thou/mm3 (1.0-4.8); Lymphocytes % (Auto) 23 % (10-50); Mean Corpuscular HGB Conc 32.6 g/dl (31.0-37.0); Mean Corpuscular Hemoglobin 32.9 pg (25.0-35.0); Mean Corpuscular Volume 101 fL (80-100); Monocytes # (Auto) 1.5 Thou/mm3 (0.0-0.8); Monocytes % (Auto) 16 % (0-12); Neutrophils # (Auto) 5.3 Thou/mm3 (1.8-7.7); Neutrophils % (Auto) 57 % (37-80); Nucleated Red Blood Cell % 0 /100 WBC (0); Platelet Count 174 Thou/mm3 (140-440); RDW Standard Deviation 50.4 fL (36.4-46.3); White Blood Count 9.4 Thou/mm3 (3.6-11.0)
[2024-08-05 06:28] LABS: Anion Gap 6 (7-16); BUN/Creatinine Ratio 25 Ratio (12-20); Blood Urea Nitrogen 10 mg/dL (9-23); Carbon Dioxide 31.1 mMol/L (20.0-31.0); Chloride 102 mMol/L (98-107); Creatinine (Component) 0.4 mg/dL (0.6-1.3); Potassium 4.2 mMol/L (3.4-5.1); Sodium 139 mMol/L (136-145)
[2024-08-05 06:29] LABS: Alanine Aminotransferase 20 U/L (10-49); Albumin, Serum 2.8 gm/dL (3.4-4.8); Albumin/Globulin Ratio 1.3 (1.2-2.2); Alkaline Phosphatase 84 U/L (46-116); Aspartate Amino Transferase 32 U/L (0-34); Bilirubin,Total 0.6 mg/dL (0.3-1.2); Calcium 7.9 mg/dL (8.3-10.6); Calcium (Corrected) 8.9 mg/dL (8.5-10.1); Estimated Creatinine Clearance 108.4 mL/min (>60); Globulin 2.1 gm/dL (2.3-3.5); Glucose 117 mg/dL (74-106); Magnesium 1.9 mg/dL (1.6-2.6); Osmolality,Calculated 277 (275-295); Phosphorous 2.2 mg/dL (2.4-5.1); Total Protein 4.9 gm/dL (5.7-8.2); eGFR > 60 See Note
[2024-08-05 08:00] VITALS: BP 97/68; PULSE 89; RESP 16; TEMP 36.2; O2SAT 97
[2024-08-05] MEDS: AMYLASE/LIPASE/PROTEASE CAPSULE (Pancreaze) 1 CAP PO ×2 (08:20→11:45)
[2024-08-05] MEDS: POLYETHYLENE GLYCOL 17 GM PACKET PO (08:20)
[2024-08-05] MEDS: ASPIRIN EC 81 MG TABEC PO (08:20)
[2024-08-05] MEDS: DOCUSATE SOD 100 MG CAPSULE 200 MG PO (08:20)
[2024-08-05] MEDS: ACETAMINOPHEN 325 MG TABLET 650 MG PO (10:08)
--- NOTE | 2024-08-05 11:33 | PC.SS ---
Follow up note: Patient ready for d/c. Held for DME delivery. SS spoke to [facility] and they confirmed they already arranged for delivery this morning. Patient can d/c home when nursing ready.
[2024-08-05] MEDS: INSULIN LISPRO (AdmeLOG) 1 UNIT/0.01 ML UNIT SC (11:45)
[2024-08-05 12:00] VITALS: BP 109/63; PULSE 89; RESP 17; TEMP 36.8; O2SAT 97
--- NOTE | 2024-08-05 13:33 | ESPR_ITS ---
Documentation for date of: 08/05/24 Subjective Subjective Interval history: Patient with right intertrochanter fracture status post ORIF Agree with discharge planning Exam Vital Signs Temp Pulse Resp BP Pulse Ox O2 Del Method O2 Flow Rate 98.2 F 89 17 109/63 97 Room Air 2 08/05/24 12:00 08/05/24 12:00 08/05/24 12:00 08/05/24 12:00 08/05/24 12:00 08/05/24 03:55 08/02/24 14:50 Objective Labs 08/05/24 04:56 08/05/24 04:56 Labs: Laboratory Results - last 24 hr 08/01/24 08/05/24 17:08 04:56 WBC 9.4 RBC 2.80 L Hgb 9.2 L Hct 28.2 L MCV 101 H MCH 32.9 MCHC 32.6 RDW Std Deviation 50.4 H Plt Count 174 Neut % (Auto) 57 Lymph % (Auto) 23 [place] % (Auto) 16 H Eos % (Auto) 3 Baso % (Auto) 0 Neut # (Auto) 5.3 Lymph # (Auto) 2.2 [place] # (Auto) 1.5 H Eos # (Auto) 0.3 Baso # (Auto) 0.0 Immature Gran # (Auto) 0.03 H Absolute Nucleated RBC 0.00 Immature Gran % 0 Nucleated RBC % 0 Sodium 139 Potassium 4.2 Chloride 102 Carbon Dioxide 31.1 H Anion Gap 6 L BUN 10 Creatinine 0.4 L Estim Creat Clear Calc 108.4 eGFR > 60 BUN/Creatinine Ratio 25 H Glucose 117 H Calculated Osmolality 277 Calcium 7.9 L Corrected Calcium 8.9 Phosphorus 2.2 L Magnesium 1.9 Total Bilirubin 0.6 AST 32 ALT 20 Alkaline Phosphatase 84 Total Protein 4.9 L Albumin 2.8 L Globulin 2.1 L Albumin/Globulin Ratio 1.3 Crossmatch See Detail Impressions Impression: pancreatic insufficiency outpatient follow-up Right intertrochanter fracture status post ORIF Agree with discharge planning Assessment & Plan A&P Narrative Continue current medical management Okay to proceed with surgery Patient in stable cardiac condition for the planned surgical procedure Time Spent With Patient Time: Total time spent is greater than 50% in coordination of care (as documented) at patient's floor/unit and/or counseling patient:
--- NOTE | 2024-08-05 15:40 | ESDS_ITS ---
Planned Discharge Date 08/05/24 DS: Providers Provider Date of admission: 07/31/24 15:15 Primary care physician: Falguni Orantes MD Admitting Provider: Bailey Block DO Attending Provider on Admission: Rajan Pinzon DO Consults: 07/31/24 13:19 Consult to Orthopedic Stat Comment: Hip fracture Consulting Provider: Aldo Tejada 07/31/24 15:56 Referral Registered Dietitian Routine Comment: s/p pancreatic surgery, pancreatic insufficiency 07/31/24 16:04 Consult to Cardiology Routine Comment: irregular heart beat, cardiac clearance Consulting Provider: Sebastian Piña 08/02/24 11:03 Referral Physical Therapy Routine Comment: Physician Instructions: 08/03/24 09:00 Consult to Gastroenterology Routine Comment: chronic pancreatitis Consulting Provider: Falguni Orantes Attending Provider on DC: Dr. Rajan Pinzon DO Discharging Provider: Dr. Rajan Pinzon DO DS: Diagnosis Problem List Completed Was Problem List Reviewed/Reconciled?: Yes Hospital Course Hospital Course Hospital course: This is a 79-year-old female with a previous medical history of chronic pancreatitis, status post pancreatic surgery, insulin-dependent diabetes, skin cancer undergoing treatment who was brought to the ED by ambulance on 07/31/2024 after ground-level fall, admitted for acute right hip intertrochanteric fracture. She underwent medical clearance by cardiology and gastroenterology and her history. Completed uncomplicated ORIF with orthopedics, Dr. Tejada (procedure notes pending). She was stable on discharge. Vitals and labs reviewed and are relatively within normal limit. She will continue outpatient physical therapy, and ASPIRIN for 30 days or until seen by orthopedics. IMAGE FINDINGS: * Femur and hip and pelvic x-ray showed right acute intertrochanteric hip fracture. * Postprocedural right femur x-ray showed reduced internal fixation right hip fracture with anatomic alignment. * Cervical spine CT negative for acute cervical fracture. * CXR showed no pneumothorax, pulmonary contusion or hemothorax. * Head CT was negative for acute pathology. * Echocardiogram showed normal LV/RV size and function, EF 55%, MARIAN, mild MR and TR, dilated IVC, no pericardial effusion. PATIENT INSTRUCTIONS: * Follow-up with PCP within 1-2 weeks of discharge. * Follow-up with Orthopedics, Dr. Tejada, within 1 week of discharge. * Continue taking ASPIRIN 81 mg daily for 30 days, or until you see orthopedics. * Continue taking ACETAMINOPHEN as needed for pain. * Continue working with physical therapy. * Return to Emergency Room if symptoms persist, worsen, or new symptoms develop. * Continue taking medications as prescribed below. ADMISSION DIAGNOSES: Acute right hip intertrochanteric fracture S/p right hip fracture repair 08/03/24 Ground level fall Anemia Chronic pancreatitis S/p pancreatotomy Insulin dependent diabetes mellitus Body mass deficit Malabsorbtion Case was discussed with attending physician and senior resident. Branden Harrison DO PGYI Time Spent with Patient Time attestation: Total time spent providing and/or coordinating discharge services: Time spent: Greater than 30 minutes Exam Vital Signs Temp Pulse Resp BP Pulse Ox O2 Del Method O2 Flow Rate 98.2 F 89 17 109/63 97 Room Air 2 08/05/24 12:00 08/05/24 12:00 08/05/24 12:00 08/05/24 12:00 08/05/24 12:00 08/05/24 03:55 08/02/24 14:50 Narrative Exam Gen: Thin elderly female. HEENT: NCAT, PERRLA, EOMI, MMM, anicteric conjunctivae. CVS: normal S1 and S2. RRR. No M/R/G. Resp: CTA B/L. No rhonchi, rales, crackles or wheezing. Abd: soft, non-tender, non-distended. BS+ in all 4 quadrants. MSK: Right lower extremity ROM restricted. 1+ tibial edema. Surgical dressing dry, in place and intact. Neuro: CN II-XII grossly intact. Able to move all extremities. Alert and oriented x3. Psych: appropriate mood and affect. Discharge Plan Plan Patient Disposition: Home w/HOME HEALTH Care Plan Goals: * Follow-up with PCP within 1-2 weeks of discharge. * Follow-up with Orthopedics, Dr. Tejada, within 1 week of discharge. * Continue taking ASPIRIN 81 mg daily for 30 days, or until you see orthopedics. * Continue taking ACETAMINOPHEN as needed for pain. * Continue working with physical therapy. * Return to Emergency Room if symptoms persist, worsen, or new symptoms develop. * Continue taking medications as prescribed below. Prescriptions/Referrals Prescriptions/Med Rec: New aspirin 81 mg Tablet,Delayed Release (Dr/Ec) 81 mg PO BID Qty: 30 0RF acetaminophen 325 mg Tablet 650 mg PO Q6H PRN (Reason: Fever >100.3 or pain) Qty: 90 0RF Continued insulin glargine [Lantus Solostar U-100 Insulin] 100 unit/mL (3 mL) insulin pen 5 unit SUBCUT BIDAC Patient Comments: dose changes a lot per pt. (DME) Dexcom G6 Sensor Device Patient Comments: TO BE CHANGED EVERY 10 DAYS DIRECTED (DME) Dexcom G6 Transmitter Device Patient Comments: USE DIRECTED EVERY 3 MONTHS insulin aspart U-100 [Novolog FlexPen U-100 Insulin] 100 unit/mL (3 mL) insulin pen 1 sliding scale dose SUBCUT TIDWM PRN (Reason: hyperglycemia) Patient Comments: INJECT 3-6 UNITS UNDER THE SKIN THREE TIMES DAILY PER SLIDING SCALE if b lood sugar is 150 or above [id number] [Creon] 1 cap PO TIDWMEAL cholecalciferol (vitamin D3) [Vitamin D3] 1 tab PO QDAY docusate sodium [Stool Softener] 1 cap PO QDAY fiber 1 dose PO QDAY Rx Instructions: granule- 4 to 6 spoonfuls Daily Referrals: Falguni Orantes MD [Primary Care Provider] - Aldo Tejada MD [Physician] - 08/11/24 (Follow-up within 1 week from today) Patient/Caregiver Discharge Instructions Education Materials: Hip Safety: Dressing, After a Hip Fracture: Common Questions, Fx Hip Surg Hospital After, Fx Hip Surg Home Recovery Print Language: Frisian Stand Alone Forms: Rebeca Award Info., Patient Portal Info Letter Discharge Order Discharge Orders: Discharge (Routine); Ordered 08/05/24 Ordered By: Branden Harrison Quality Discharge Quality Measures VTE prophylaxis Attestestation Attestation I have discussed and was present for the essential components of the discharge history, physical examination, diagnosis, and discharge treatment plan with the resident. I agree with the patient's discharge care as documented by the resident and amended herein by me. Kieran Pinzon DO. The patient understood all discharge instructions, all questions were answered satisfactorily. The patient was instructed to return to the Emergency Department is symptoms worsened or persisted. Patient will need to follow-up with Dr. Terrell, orthopedic surgeon within 1 week of discharge, patient discharged on aspirin per orthopedic surgery recommendations. Wound clean and dry at day of discharge, patient advised not to get the wound wet, dressing was changed prior to discharge. All questions were answered satisfactorily, the patient was stable, afebrile, tolerating p.o. intake and ambulatory with assistance at time of discharge home with DME. Although this document has been carefully reviewed, there may still be some phonetic and other typographical errors. These errors are purely grammatical due to imperfections in the software program and should not be construed in any way to compromise the substance of the patient's medical care during this visit.
--- NOTE | 2024-08-05 15:59 | PC.PT ---
Patient is safe to ambulate to the bathroom and in the halls with a FWW and 1 staff assist. RN made aware.
--- NOTE | 2024-08-06 17:02 | PC.CC ---
Addendum entered by Macrina Herring RN 08/06/24 19:06: [facility] pt. [facility] Start of care date is 08/08/24. Original Note: No preferred agency as per SS notes. HH referral sent to [facility]. Awaiting responses. Pending start of care date.
== END 2024-08-05 16:52 | disposition home health service (06) | DRG 481 ==
LOC: SERX 14:18 → SERHOLD 17:30 → S3SX 08-01 06:07
PROVIDERS: Nurse Practitioner Family; Orthopaedic Surgery; Student in an Organized Health Care Education/Training Program; Admitting Provider Internal Medicine; Emergency Provider Emergency Medicine; PCP Specialist; Visit Provider Student in an Organized Health Care Education/Training Program
PROC: (CPT 27245; principal; 2024-08-02 13:00)
DX: S72.141A Displaced intertrochanteric fracture of right femur, initial encounter for closed fracture (principal); K86.1 Other chronic pancreatitis; S00.83XA Contusion of other part of head, initial encounter; K64.8 Other hemorrhoids; D64.9 Anemia, unspecified; E11.9 Type 2 diabetes mellitus without complications; I48.91 Unspecified atrial fibrillation; Z90.49 Acquired absence of other specified parts of digestive tract; Z90.81 Acquired absence of spleen; W01.0XXA Fall on same level from slipping, tripping and stumbling without subsequent striking against object, initial encounter; Z79.4 Long term (current) use of insulin; E11.65 Type 2 diabetes mellitus with hyperglycemia; K59.00 Constipation, unspecified; N28.89 Other specified disorders of kidney and ureter; E11.649 Type 2 diabetes mellitus with hypoglycemia without coma; Z79.82 Long term (current) use of aspirin; Z85.828 Personal history of other malignant neoplasm of skin; Z90.411 Acquired partial absence of pancreas; Z88.2 Allergy status to sulfonamides; Z88.5 Allergy status to narcotic agent
CPT/HCPCS: 36415; 36600; 70450; 71045; 72125; 73502; 73552; 76000; 80053; 81001; 82140; 82728; 82803; 82947; 83036; 83540; 83550; 83605; 83735; 83880; 84100; 84484; 85025; 85610; 85730; 86850; 86900; 86901; 86923; 87081; 93005; 93306; 96372; 97161; 99285; A4217; A4314; A4649; C1713; C1776; J0131; J0690; J1100; J1815; J2175; J2250; J2704; J2795; J3475; J3490; A9270

== ENCOUNTER → 2024-08-16 | Outpatient (CLI) | payer MEDICARE, BC, SELFPAY ==
--- NOTE | 2024-08-16 13:44 | XR_ITS ---
Examination: Duplex scan of the lower extremity, unilateral right Date and time of exam: August 16, 2024 1353 hours INDICATIONS: Right leg pain and edema one week, status post hip surgery 2 weeks ago Technique: Duplex scan of the extremity veins using B-mode/grayscale imaging and Doppler spectral analysis and color flow Attention is directed to internal echogenicity, compression and augmentation involving these veins, color flow assessment, spectral analysis Findings: Major deep venous structures in the extremity demonstrate normal course and caliber. There is no evidence of deep vein thrombosis. Normal color flow and spectral analysis Impression: Negative for DVT..
== END | disposition home or self-care (01) ==
LOC: CDIM 13:18
PROVIDERS: PCP Specialist; Referring Provider Specialist; Visit Provider Specialist
DX: M79.604 Pain in right leg (principal); R60.0 Localized edema
CPT/HCPCS: 93971

== ENCOUNTER → 2024-09-10 | Outpatient (CLI) | payer MEDICARE, BC, SELFPAY ==
[2024-09-10 13:33] LABS: Collection Type, Urine Clean Catch
[2024-09-10 14:29] LABS: Bilirubin,Urine Negative (Negative); Blood,Urine Negative (Negative); Clarity,Urine Clear (Clear/Hazy); Color,Urine Lt-Yellow (Lt Yel-Yel); Glucose, Urine Negative (Negative); Ketones,Urine Negative (Negative); Leukocyte Esterase,Urine Negative (Negative); Nitrite,Urine Negative (Negative); PH,Urine 5.5 (5.0-7.0); Protein,Urine Negative (Neg - Trace); RBC,Urine < 1 /hpf (0-3); Specific Gravity,Urine 1.020 (1.001-1.035); Squamous Epithelial Cell,Urine < 1 /hpf (0-5); Urobilinogen,Urine Negative mg/dL (0.0-1.0); WBC,Urine < 1 /hpf (0-5)
== END | disposition home or self-care (01) ==
LOC: SLDO 13:23
PROVIDERS: Referring Provider Specialist; Visit Provider Specialist
DX: R30.0 Dysuria (principal)
CPT/HCPCS: 81001; 87086